=== PATIENT | male | born 1945 | race Caucasian/White ===

== ENCOUNTER 2016-05-23 12:42 | Emergency (ER) | payer OTHER ==
[~2016-05-23] VITALS: Ht 177.8 cm; Wt 89.3 kg
[~2016-05-23 12:42] MED LIST: DOXY100T17 PO; IBUP-1050 PO; SIMV20TA2 PO
[2016-05-23 12:53] VITALS: Ht 177.8 cm; Wt 89.3 kg
[2016-05-23 14:06] LABS: BASO % 0.2 %; BASO ABS # 0.03 K/uL (0-0.2); COMPLETE YES; EOS % 0.3 %; HEMATOCRIT 45.7 % (42-52); IG% 0.3 %; LYMPH % 5.3 %; LYMPH ABS # 0.69 K/uL (1.2-3.4); MEAN CELL VOLUME 89.8 fL (80-100); MEAN CORPUSCULAR HEMOGLOBIN 32.4 pg (25-34); MEAN CORPUSCULAR HGB CONC 36.1 g/dl (32-36); MEAN PLATELET VOLUME 9.5 fL (7.4-10.4); MONO % 5.3 %; NEUT % 88.6 %; PLATELET COUNT 236 K/uL (130-400); RED BLOOD COUNT 5.09 M/uL (4.7-6.1)
[2016-05-23 14:21] LABS: BLOOD UREA NITROGEN 12 mg/dl (7-18); BUN/CREATININE RATIO 12.1 (10-20); C-REACTIVE PROTEIN < 0.29 mg/dl (0-0.29); CALCIUM 9.1 mg/dl (8.5-10.1); CARBON DIOXIDE 24 mmol/L (21-32); CHLORIDE 107 mmol/L (98-107); CREATININE 0.98 mg/dl (0.60-1.40); GLUCOSE 112 mg/dl (70-99); SODIUM 141 mmol/L (136-145)
[2016-05-23 14:30] VITALS: TEMP 36.8
--- NOTE | 2016-05-23 14:59 | EMERGENCY ROOM VISIT NOTE ---
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 I was involved in the patient's care and did evaluate the patient myself. I was involved in the care throughout the ER stay. The patient presents with rigors. He is not febrile currently but does have a slight white blood cell count elevation. His symptoms have completely resolved and he feels back to baseline. He does have a urine sample and chest x-ray pending, blood cultures are pending. We await the results of the chest x-ray and urine sample.
[2016-05-23 15:15] LABS: URINE APPEARANCE CLEAR (CLEAR); URINE BILIRUBIN NEG (NEG); URINE COLOR DK YELLOW; URINE EPITHELIAL CELL AUTO 0-5 /lpf (0-5); URINE NITRITE NEG (NEG); URINE PH 5.5 (4.5-7.5); URINE SPECIFIC GRAVITY 1.015 (1.000-1.030); UROBILINOGEN NEG (NEG)
[2016-05-23 15:30] LABS: MANUAL MICROSCOPIC REQUIRED? NO; REVIEW REQ? NO
--- NOTE | 2016-05-23 16:02 | DIAGNOSTIC IMAGING REPORT ---
CHEST 2 VIEWS ROUTINE CLINICAL HISTORY: Chills. Shaking. Cough. COMPARISON STUDY: Chest radiograph January 24, 2016. FINDINGS: Lung volumes are normal. Lateral view demonstrates mild opacity projecting over the posterior elements of the lower thoracic spine. This is not confirmed on the frontal projection. Otherwise, the lungs are clear. Cardiac size is normal. Mediastinal contours are normal. There is no evidence of pulmonary edema. IMPRESSION: Small nodular opacity projecting over the posterior elements of the lower thoracic spine only on lateral projection. An area of pneumonia or a pulmonary nodule could have this appearance. PA and lateral chest radiographs in one month to ensure resolution are recommended. Electronically signed by: Mathieu Alfred M.D. 05/23/2016 4:01 PM Dictated Date/Time: 05/23/2016 3:59 PM
[2016-05-23] MEDS ORDERED: AZITTAB PO (16:11)
[2016-05-23 16:34] VITALS: BP 125/71; PULSE 102; O2SAT 94
--- NOTE | 2016-05-24 18:16 | EMERGENCY ROOM VISIT NOTE ---
History First contact with patient: 13:24 Chief Complaint: OTHER COMPLAINT Stated Complaint: SHAKING History of Present Illness The patient is a 71 year old white male who presents to the Emergency Room with complaints of sudden onset of vigorous shaking that occurred while at [employer] today. He was brought to the ED by [facility] and states that the shaking stopped just prior to arrival. He has had one similar episode last year when he was diagnosed with Lyme disease infection. Patient denies feeling ill. He denies any fevers, chills, sweats, nausea, vomiting, diarrhea, shortness of breath, sore throat, or ear pain. No known ill contacts. He states he remembers the entire shaking episode. There was no loss of consciousness. He denies any headache. No change in vision, speech, or hearing. His accompanies him today. He states he currently feels well. Review of Systems REVIEW OF SYSTEM: HEENT: No dizziness, visual problems, hearing loss, or tinnitus. There is no difficulty swallowing and no oral lesions are present. LYMPH: No adenopathy. PULMONARY: No cough, shortness of breath, sputum production or hemoptysis. CARDIOVASCULAR: No chest pain, palpitations, shortness of breath or peripheral edema. GASTROINTESTINAL: No diarrhea, constipation, nausea, vomiting, or abdominal pain. GENITOURINARY: No dysuria, frequency, urgency or nocturia. NEUROLOGIC: No weakness, muscle tenderness, epilepsy or history of neurological problems. MUSCULOSKELETAL: No history of joint tenderness/swelling. Positive history of arthritis and arthralgias. SKIN: No rashes or lesions. PSYCHIATRIC: No history of depression or mental illness. ENDOCRINE: No history of diabetes, thyroid disorders, or abnormal hair growth. Past Medical/Surgical History Medical Problems: (1) Hyperlipemia Family History Noncontributory. Social History Smoking Status: Former Smoker Smokeless Tobacco Use: No Alcohol Use: occasionally Drug Use: none Marital Status: Housing Status: lives with family Occupation Status: retired Current/Historical Medications Scheduled Azithromycin (Zithromax Z-Kodak), 0 PO UD Simvastatin (Zocor), 20 MG PO QPM Allergies Coded Allergies: No Known Allergies (Unverified , 01/24/16) Physical Exam Vital Signs Date Time Temp Pulse Resp B/P Pulse Ox O2 Delivery O2 Flow Rate FiO2 05/23/16 16:34 102 22 125/71 94 05/23/16 14:30 36.8 90 16 126/75 92 Room Air 05/23/16 12:55 97 05/23/16 12:53 36.9 100 18 136/102 95 Room Air Pain Rating (0-10): 0 Physical Exam Gen.: Well-developed, well-nourished, elderly white male, in no acute distress. Laying on a bed. Alert and oriented. Skin:Warm and dry with good turgor. No rashes or lesions. No ecchymosis or erythema. The patient is not diaphoretic. No abrasions. HEENT: Normocephalic atraumatic. Eyes PERRLA, EOMI. No conjunctiva or scleral injection. Ears TMs intact bilaterally with good light reflexes. No erythema or bulging. No hemotympanum. Canals are patent. Nares patent bilaterally without turbinate enlargement. No significant drainage. No epistaxis. Oropharynx without erythema or exudate. Uvula midline, oral mucosa moist. No lesions present. Heart: Heart RRR. No MGR. Peripheral pulses are 2+. Lungs: Lungs are clear to auscultation. No crackles rhonchi or wheezing. Good air movement. The patient is able to take a deep breath. Abdomen: Abdomen was inspected, auscultated, and palpated. Bowel sounds present x 4. Soft, nontender to palpation. No hepato- splenomegaly. No masses noted. No rebound. No CVA tenderness. Musculoskeletal: Gross motor function of the upper and lower extremities is intact and unremarkable. Neurologic: Gross sensation is intact across the upper and lower extremities by soft touch. Medical Decision & Procedures ER Provider Diagnostic Interpretation: Chest x-ray obtained today shows a small nodular opacity over the posterior elements of the lower thoracic spine. Area of pneumonia or pulmonary nodule cannot be excluded. Chest radiographs in one month were recommended. EKG obtained today shows a normal sinus rhythm with incomplete right bundle- branch block. No significant change since December 2015. Rate of 99. This was reviewed with Dr. Avalos. Laboratory Results 05/23/16 13:55 Red Blood Count 5.09, Mean Corpuscular Volume 89.8, Mean Corpuscular Hemoglobin 32.4, Mean Corpuscular Hemoglobin Concent 36.1, Mean Platelet Volume 9.5, Neutrophils (%) (Auto) 88.6, Lymphocytes (%) (Auto) 5.3, Monocytes (%) (Auto) 5.3, Eosinophils (%) (Auto) 0.3, Basophils (%) (Auto) 0.2, Neutrophils # (Auto) 11.41, Lymphocytes # (Auto) 0.69, Monocytes # (Auto) 0.69, Eosinophils # (Auto) 0.04, Basophils # (Auto) 0.03 05/23/16 13:55 Test 05/23/16 13:55 05/23/16 15:00 White Blood Count 12.90 K/uL (4.8-10.8) Red Blood Count 5.09 M/uL (4.7-6.1) Hemoglobin 16.5 g/dL (14.0-18.0) Hematocrit 45.7 % (42-52) Mean Corpuscular Volume 89.8 fL (80-100) Mean Corpuscular Hemoglobin 32.4 pg (25-34) Mean Corpuscular Hemoglobin Concent 36.1 g/dl (32-36) Platelet Count 236 K/uL (130-400) Mean Platelet Volume 9.5 fL (7.4-10.4) Neutrophils (%) (Auto) 88.6 % Lymphocytes (%) (Auto) 5.3 % Monocytes (%) (Auto) 5.3 % Eosinophils (%) (Auto) 0.3 % Basophils (%) (Auto) 0.2 % Neutrophils # (Auto) 11.41 K/uL (1.4-6.5) Lymphocytes # (Auto) 0.69 K/uL (1.2-3.4) Monocytes # (Auto) 0.69 K/uL (0.11-0.59) Eosinophils # (Auto) 0.04 K/uL (0-0.5) Basophils # (Auto) 0.03 K/uL (0-0.2) RDW Standard Deviation 43.1 fL (36.4-46.3) RDW Coefficient of Variation 13.1 % (11.5-14.5) Immature Granulocyte % (Auto) 0.3 % Immature Granulocyte # (Auto) 0.04 K/uL (0.00-0.02) Erythrocyte Sedimentation Rate 18 mm/hr (0-14) Anion Gap 10.0 mmol/L (3-11) Est Creatinine Clear Calc Drug Dose 77.8 ml/min Estimated GFR () 89.5 Estimated GFR (Non- 77.3 BUN/Creatinine Ratio 12.1 (10-20) Calcium Level 9.1 mg/dl (8.5-10.1) C-Reactive Protein < 0.29 mg/dl (0-0.29) Urine Color DK YELLOW Urine Appearance CLEAR (CLEAR) Urine pH 5.5 (4.5-7.5) Urine Specific [place] 1.015 (1.000-1.030) Urine Protein NEG (NEG) Urine Glucose (UA) NEG (NEG) Urine Ketones NEG (NEG) Urine Occult Blood NEG (NEG) Urine Nitrite NEG (NEG) Urine Bilirubin NEG (NEG) Urine Urobilinogen NEG (NEG) Urine Leukocyte Esterase TRACE (NEG) Urine WBC (Auto) 1-5 /hpf (0-5) Urine RBC (Auto) 0-4 /hpf (0-4) Urine Hyaline Casts (Auto) 1-5 /lpf (0-5) Urine Epithelial Cells (Auto) 0-5 /lpf (0-5) Urine Bacteria (Auto) NEG (NEG) CBC, chem panel, and UA were obtained. C-reactive protein and sedimentation rate were also obtained. WBCs elevated at 12.9. Sedimentation rate elevated at 18. Chem panel and UA were unremarkable. Blood cultures were obtained today and are pending. ED Course Patient has family were educated regarding today's findings. Conservative care measures were discussed. IV was established. Labs were obtained. Chest x-ray and EKG were also obtained. Given the finding on his chest x-ray, his Reiger's , and his elevated white count, we will treat this as pneumonia. Prescription was given for Zithromax Z-Kodak to be taken daily. Follow-up with his PCP this week for reexamination. Obtain the chest x-ray in about a month to confirm resolution. Tylenol and Motrin every 6 hours as needed for fever or discomfort. Return to the ED for any acute changes or worsening chills. He will be called with blood culture results if they're positive. Patient was seen in conjunction with Dr. Avalos, who also evaluated the patient and concurred with today's diagnosis and treatment plan. Medical Decision Possibility of UTI, pneumonia, sepsis, seizure, and recurrence of Lyme disease were considered. Impression Primary Impression: Pneumonia of lower lobe due to infectious organism Additional Impression: Rigors Departure Information Dispostion Home / Self-Care Condition GOOD Prescriptions Azithromycin (ZITHROMAX Z-KODAK) 250 Mg Tab 0 PO UD, #1 PKT 2 TABS DAY 1, THEN 1 TAB DAILY FOR 4 DAYS Prov: Sudhakar Pedroza,P.A. 05/23/16 Forms WORK / SCHOOL INSTRUCTIONS, HOME CARE DOCUMENTATION FORM, MOTRIN USE, TYLENOL USE, IMPORTANT VISIT INFORMATION Patient Instructions My [facility] Additional Instructions Follow-up with your PCP this week for reexamination Obtain a chest x-ray in about a month to confirm resolution Zithromax Z-Kodak daily 5 days Tylenol and Motrin every 6 hours as needed for fever/discomfort Return to the ED for any acute changes or worsening chills You will be called with the blood culture results if they are positive Problem Qualifiers
== END 2016-05-23 16:36 | disposition home or self-care (01) ==
LOC: EDSEX 12:42 → C.EDA 12:42 → EDBD 12:42 → C.EDA 16:36
DX: J18.1 Lobar pneumonia, unspecified organism (principal); R68.89 Other general symptoms and signs; E78.5 Hyperlipidemia, unspecified; Z87.891 Personal history of nicotine dependence

== ENCOUNTER → 2016-06-03 | Outpatient (CLI) | payer OTHER ==
[~2016-06-03] MED LIST changes: +AZITTAB PO; -DOXY100T17 PO; -IBUP-1050 PO
[2016-06-03 12:28] LABS: BASO % 0.5 %; BASO ABS # 0.04 K/uL (0-0.2); COMPLETE YES; EOS % 2.2 %; HEMATOCRIT 45.5 % (42-52); IG% 0.1 %; LYMPH % 28.8 %; LYMPH ABS # 2.49 K/uL (1.2-3.4); MEAN CELL VOLUME 89.4 fL (80-100); MEAN CORPUSCULAR HEMOGLOBIN 31.4 pg (25-34); MEAN CORPUSCULAR HGB CONC 35.2 g/dl (32-36); MEAN PLATELET VOLUME 9.7 fL (7.4-10.4); MONO % 8.4 %; PLATELET COUNT 323 K/uL (130-400); RED BLOOD COUNT 5.09 M/uL (4.7-6.1); WHITE BLOOD COUNT 8.65 K/uL (4.8-10.8)
== END | disposition home or self-care (01) ==
LOC: C.LABPBG 09:57
PROVIDERS: ATTEND Neuromusculoskeletal Medicine & OMM
DX: Z86.2 Personal history of diseases of the blood and blood-forming organs and certain disorders involving the immune mechanism (principal)

== ENCOUNTER → 2016-06-09 | Outpatient (CLI) | payer OTHER ==
[~2016-06-09] MED LIST changes: -AZITTAB PO
--- NOTE | 2016-06-09 11:19 | DIAGNOSTIC IMAGING REPORT ---
CT LUNG SCREENING, LOW DOSE WITH COMPUTER-AIDED DETECTION (CAD) CLINICAL HISTORY: Lung cancer screening. Smoking history. COMPARISON STUDY: Chest x-ray dated 05/23/2016. CT DOSE: 81.68 mGycm TECHNIQUE: Low-dose helical CT was acquired without intravenous contrast from lung apices to bases and reconstructed at 2.5 mm every 2 mm. CAD was utilized for this study. FINDINGS: Thyroid: Imaged portions of the thyroid gland are normal in appearance. Thoracic aorta: There is mild atherosclerotic calcification of the thoracic aorta, which is normal in caliber and demonstrates standard 3-vessel arch anatomy. Heart: The heart is normal in size and configuration, without pericardial effusion. The coronary arteries are densely calcified. The pulmonary trunk is normal in caliber. Lungs and pleural spaces: Emphysematous change is noted. There is no airspace consolidation or pleural effusion. Fat-containing Bochdalek hernias are present at both lung bases. The trachea and central airways are clear. There is a 3 mm pulmonary nodule at the left lung base seen on image #252. A calcified granuloma is seen in the medial left lower lobe on image #127. Mediastinum: There are scattered benign-appearing mediastinal lymph nodes. Ny: Not well assessed without IV contrast. Axilla: Clear. Upper abdomen: A small hiatal hernia is noted. Partially visualized upper abdominal viscera is otherwise grossly normal. Skeletal structures: There are no lytic or blastic osseous lesions. Advanced arthritic change is present in the shoulders, right greater than left. IMPRESSION: 1. Emphysema. 2. No airspace consolidation or pleural effusion is identified. 3. There is a 3 mm indeterminant but low suspicion left lower lobe pulmonary nodule. See below. Nodule 1 Category: 2 Nodule 1 Status: Baseline Nodule 1 Description: Solid Nodule 1 Lesion ID: 1 Nodule 1 Slice Number: 43 Nodule 1 Volume (mm3): 17 Nodule 1 Major [place] mm: 4.4 Nodule 1 Minor [place] mm: 3.1 CAD FINDINGS: Overall Lung RADS Category: 2 Lung RADS Management Recommendation: Lung-RADS 2: Continue annual screening in 12 months. Lung RADS Follow Up Date: 2017-06-09 Lung RADS Nodule ID: 1 Electronically signed by: Camron Pena M.D. 06/09/2016 11:18 AM Dictated Date/Time: 06/09/2016 10:24 AM
== END | disposition home or self-care (01) ==
LOC: C.CTS 09:59
PROVIDERS: ATTEND Neuromusculoskeletal Medicine & OMM
DX: J18.1 Lobar pneumonia, unspecified organism (principal); Z87.891 Personal history of nicotine dependence

== ENCOUNTER → 2016-08-26 | Outpatient (CLI) | payer OTHER ==
[2016-08-26 15:41] LABS: ALT/SGPT 33 U/L (12-78); BLOOD UREA NITROGEN 14 mg/dl (7-18); BUN/CREATININE RATIO 12.8 (10-20); CARBON DIOXIDE 28 mmol/L (21-32); CHLORIDE 108 mmol/L (98-107); CHOLESTEROL 149 mg/dl (0-200); GLUCOSE 97 mg/dl (70-99); POTASSIUM 4.3 mmol/L (3.5-5.1); SODIUM 143 mmol/L (136-145); TRIGLYCERIDES 196 mg/dl (0-150); VERY LOW DENSITY LIPOPROT CALC 39 mg/dl
[2016-08-26 15:42] LABS: CALCIUM 9.1 mg/dl (8.5-10.1)
[2016-08-26 15:52] LABS: ALKALINE PHOSPHATASE 40 U/L (45-117); AST/SGOT 25 U/L (15-37); CHOLESTEROL/HDL RATIO 4.8; HDL CHOLESTEROL 31 mg/dl; LDL CHOLESTEROL CALCULATED 79 mg/dl
== END | disposition home or self-care (01) ==
LOC: C.LABPBG 07:38
PROVIDERS: ATTEND Neuromusculoskeletal Medicine & OMM
DX: Z00.00 Encounter for general adult medical examination without abnormal findings (principal); Z11.59 Encounter for screening for other viral diseases; E78.5 Hyperlipidemia, unspecified

== ENCOUNTER → 2016-12-23 | Outpatient (CLI) | payer OTHER | END | disposition home or self-care (01) | LOC: C.LABPBG 10:08 | PROVIDERS: ATTEND Urology | DX: N40.1 Benign prostatic hyperplasia with lower urinary tract symptoms (principal); R97.20 Elevated prostate specific antigen [PSA] ==

== ENCOUNTER → 2017-03-01 | Outpatient (CLI) | payer OTHER ==
[2017-03-01 13:34] LABS: BLOOD UREA NITROGEN 11 mg/dl (7-18); BUN/CREATININE RATIO 10.4 (10-20); CALCIUM 8.8 mg/dl (8.5-10.1); CARBON DIOXIDE 28 mmol/L (21-32); CHLORIDE 106 mmol/L (98-107); CREATININE 1.04 mg/dl (0.60-1.40); GLUCOSE 102 mg/dl (70-99); POTASSIUM 4.4 mmol/L (3.5-5.1); SODIUM 139 mmol/L (136-145)
[2017-03-01 13:37] LABS: ALB/GLOB RATIO 0.9 (0.9-2); ALKALINE PHOSPHATASE 60 U/L (45-117); ALT/SGPT 27 U/L (12-78); AST/SGOT 23 U/L (15-37); CHOLESTEROL 127 mg/dl (0-200); CHOLESTEROL/HDL RATIO 3.6; HDL CHOLESTEROL 35 mg/dl; LDL CHOLESTEROL CALCULATED 62 mg/dl; TRIGLYCERIDES 151 mg/dl (0-150); VERY LOW DENSITY LIPOPROT CALC 30 mg/dl
== END | disposition home or self-care (01) ==
LOC: C.LABPBG 08:33
PROVIDERS: ATTEND Neuromusculoskeletal Medicine & OMM
DX: E78.5 Hyperlipidemia, unspecified (principal)

== ENCOUNTER → 2017-07-04 | Outpatient (CLI) | payer OTHER | END | disposition home or self-care (01) | LOC: C.LABPBG 10:18 | PROVIDERS: ATTEND Urology | DX: N40.1 Benign prostatic hyperplasia with lower urinary tract symptoms (principal) ==

== ENCOUNTER 2018-09-24 19:09 | Inpatient (IN) ==
[2018-09-24] MEDS ORDERED: ACETAMINOPHEN 500 MG TAB PO STA (19:18)
[2018-09-24] MEDS ORDERED: SODIUM CHLORIDE 0.9% 1000ML 2,000 ML IV SCH (19:30)
[2018-09-24 19:43] LABS: Basophils # (auto) 0.03 K/uL (0-0.2); Basophils % (auto) 0.2 %; Eosinophils # (auto) 0.07 K/uL (0-0.5); Eosinophils % (auto) 0.5 %; Hematocrit (blood only) 43.4 % (42-52); Hemoglobin 15.1 g/dL (14.0-18.0); Immature Granulocytes # (auto) 0.02 K/uL (0.00-0.02); Immature Granulocytes % (auto) 0.2 %; Lymphocytes # (auto) 0.42 K/uL (1.2-3.4); Lymphocytes % (auto) 3.2 %; Mean Corpuscular Hgb Conc 34.8 g/dL (32-36); Mean Corpuscular Volume 91.6 fL (80-100); Monocytes # (auto) 0.54 K/uL (0.11-0.59); Monocytes % (auto) 4.2 %; Neutrophils # (auto) 11.87 K/uL (1.4-6.5); Neutrophils % (auto) 91.7 %; Platelet Count 203 K/uL (130-400); RDW Coefficient of Variation 13.7 % (11.5-14.5); RDW Standard Deviation 45.6 fL (36.4-46.3); Red Blood Count 4.74 M/uL (4.7-6.1); White Blood Count 12.95 K/uL (4.8-10.8)
[2018-09-24 20:00] LABS: Alanine Aminotransferase 30 U/L (12-78); Albumin Level 3.2 gm/dl (3.4-5.0); Aspartate Aminotransferase 26 U/L (15-37); Blood Urea Nitrogen 18 mg/dl (7-18); Carbon Dioxide 26 mmol/L (21-32); Chloride 107 mmol/L (98-107); Creatinine Clr Calc Pharmacy 69.7 ml/min; Est GFR (African American) 83.1; Est GFR (Non-African American) 71.7; Glucose 129 mg/dl (70-99); Potassium 3.9 mmol/L (3.5-5.1); Sodium 140 mmol/L (136-145)
[2018-09-24 20:05] LABS: Albumin Globulin Ratio 0.9 (0.9-2); Alkaline Phosphatase 47 U/L (45-117); Bilirubin,Total 0.5 mg/dl (0.2-1); Globulin 3.4 gm/dl (2.5-4.0); Total Protein 6.6 gm/dl (6.4-8.2); Troponin I < 0.015 ng/ml (0-0.045)
[2018-09-24 20:17] LABS: Appearance Urine Clear (Clear); Bilirubin Urine Negative (Negative); Blood Urine Negative (Negative); Color Urine Yellow; Glucose Urine UA Negative (Negative); Ketones Urine Negative (Negative); Leukocyte Esterase Urine Negative (Negative); Nitrite Urine Negative (Negative); Protein Urine Negative (Negative); Specific Gravity Urine 1.017 (1.000-1.030); Urobilinogen Urine Negative (Negative); pH Urine 5.5 (4.5-7.5)
[2018-09-24] MEDS ORDERED: cefTRIAXone SODIUM 2,000 MG in DEXTROSE 5% 50 ML IV STA (20:24)
--- NOTE | 2018-09-24 20:27 | XRay Report ---
XR chest 2V routine CLINICAL HISTORY: sob, fever COMPARISON STUDY: 01/24/2016 FINDINGS: The cardiac and mediastinal contours are normal. There is no evidence of focal pulmonary co nsolidation. There is no evidence of failure. No pleural effusions are visualized.[ IMPRESSION: No active disease in the chest. Electronically signed by: Fredrick Muhammad M.D. 09/24/2018 8:26 PM
--- NOTE | 2018-09-24 21:09 | CT Scan Report ---
CT chest wo con CLINICAL HISTORY: Fever, possible pneumonia. COMPARISON STUDY: Chest x-ray dated 09/24/2018, CT scan dated 09/15/2018 CT DOSE: 418.12 mGy.cm TECHNIQUE: CT of the thorax was performed from the thoracic inlet to the lung bases. Images are revi ewed in the axial, sagittal, and coronal planes. IV contrast was not administered for this examinatio n. A dose lowering technique was utilized adhering to the principles of ALARA. FINDINGS: Thyroid: Imaged portions of the thyroid gland are normal in appearance. Thoracic aorta: The thoracic aorta is normal in course and caliber, noting standard 3 vessel arch patricia eve. Heart: There are mild coronary artery calcifications. The heart is normal in size. There is no perica rdial effusion. Lungs and pleural spaces: There are no pleural effusions. There is no acute parenchymal consolidation . A 6 mm solid left lower lobe pulmonary nodule is visualized on image #[id number]. This is slowly growi ng, as this nodule measured 4 mm and 2017. There is a stable solid subpleural 4 mm left upper lobe pu lmonary nodule. There are a few scattered micronodules. Mediastinum: There is a borderline enlarged 1 cm precarinal lymph node. Ny: There is no evidence of pathologic hilar adenopathy given the limitations of a noncontrast stud y Axilla: There is no evidence of pathologic axillary lymphadenopathy Upper abdomen: Partially visualized upper abdominal viscera is within normal limits. Skeletal structures: There are no lytic or blastic osseous lesions. IMPRESSION: 1. No evidence of acute parenchymal consolidation. 2. Indeterminate slowly growing solid 6 mm left lower lobe pulmonary nodule. This nodule measured 4 m m in May 2016. Nonemergent pulmonary consultation is recommended. Electronically signed by: Fredrick Muhammad M.D. 09/24/2018 9:08 PM
--- NOTE | 2018-09-24 22:01 | Emergency Department Note ---
Entered by Camron Price acting as a scribe for Alfred Christopher M.D. History of Present Illness General Chief complaint: Illness Stated complaint: SOB, ILLNESS, COUGH, FEVER Source: patient History of Present Illness Provider complaint: SOB Onset (ago): minute(s) Location: chest Associated symptoms: + denies other symptoms (abd pain) and + shortness of breath; no loss of appetite and no nausea/vomiting Treatments prior to arrival: other (IV fluid) The patient is a 73 year old male with a history of asthma, hyperlipidemia, and arthritis who presents to the Emergency Room with complaints of shortness of breath that began slightly prior to arrival. The patient also complains of feeling shaky. The patient notes that he had a similar episode to this one approximately 3 weeks ago. He states that his had PNA 3 weeks ago. The patient denies abdominal pain, nausea/vomiting, and problems eating/drinking. The patient was seen 1 week ago. He states that he has a spot of left lung that was unchanged at that time and adds that he had a new spot on his right lung. Home Medications Home Medications Medication Instructions Recorded Confirmed Type multivitamin tablet 1 tab PO DAILY 09/12/18 09/24/18 History simvastatin 20 mg tablet 20 mg PO QPM #90 tab 09/12/18 09/24/18 Rx Allergies Allergy/AdvReac Type Severity Reaction Status Date / Time No Known Allergies Allergy Verified 09/24/18 20:12 Past Med/Surg History Medical History Pulmonary nodule less than 6 cm determined by computed tomography of lung (Chronic) Elevated PSA (Chronic) Benign prostatic hyperplasia with urinary obstruction (Chronic) Asthma (Chronic) Arthritis (Chronic) Lung consolidation (Resolved) Need for hepatitis C screening test completed- September 2016 Surgical History History of colonoscopy Fiberoptic History of tonsillectomy Family History Father Leukemia Sister Breast cancer 73 Mother No known health problems Social History Visual Impairment: No Limitations marital status: Current Living Situation: Spouse current occupational status: retired current occupation: Teacher Feels Safe at Home: Yes Smoking Status: Former smoker Tobacco Type: cigarettes Cigarettes Per Day: 1 ppd x 40yrs Hx Alcohol Use: Yes Alcohol type: beer Alcohol Intake Frequency Comment: 2 beers per day Hx Substance Use: No Review of Systems See HPI for pertinent positives & negatives. and A total of 10 systems reviewed and were otherwise negative Physical Exam Vital Signs Vital Signs - 24 hr 09/24/18 19:14 09/24/18 21:00 09/24/18 21:02 Temperature 38.9 C H 38.1 C H Temperature Source Oral Oral Sepsis Recent Fever Within 48 Hours Yes Sepsis New/Unexplained Change in Mental Status No Sepsis Action Taken by Nursing No Action Required Pulse Rate 118 H Pulse Rate [Apical] 99 H Respiratory Rate 18 18 Blood Pressure 136/82 Blood Pressure [Right Arm] 116/63 Blood Pressure Mean 100 Blood Pressure Mean [Right Arm] 80 Pulse Oximetry 93 94 Oxygen Delivery Method Room Air Room Air 09/24/18 21:52 Temperature Temperature Source Sepsis Recent Fever Within 48 Hours Sepsis New/Unexplained Change in Mental Status Sepsis Action Taken by Nursing Pulse Rate Pulse Rate [Apical] 90 Respiratory Rate 18 Blood Pressure Blood Pressure [Right Arm] 109/60 Blood Pressure Mean Blood Pressure Mean [Right Arm] 76 Pulse Oximetry 93 Oxygen Delivery Method Room Air GENERAL: Awake, alert, well-appearing, in no distress HENT: Normocephalic, atraumatic. EYES: Normal conjunctiva. Sclera non-icteric. NECK: Supple. No nuchal rigidity. RESPIRATORY: Clear to auscultation. No wheezes. Normal respiratory effort. CARDIAC: Tachycardic. Normal rhythm. Extremities warm and well perfused. GI: Soft, non-distended. No tenderness to palpation. No rebound or guarding. No masses. RECTAL: Deferred. MUSCULOSKELETAL: Atraumatic. Chest examination reveals no tenderness. There is no CVA tenderness to palpation. LOWER EXTREMITIES: Calves are equal size bilaterally and non-tender. No edema NEURO: Normal sensorium. No sensory or motor deficits noted. No facial droop or slurred speech. SKIN: Warm and dry. No rash or jaundice noted. Course 1909: The patient was evaluated in room C06. A complete history and physical e xam was performed. 2152: [facility] He will evalu ate the patient or further management. Consultations Consultation #1: [id number]: I discussed the patient case with Mary ruffin. He will evaluate the patient or further management. Time: 21:53 Administered Medications Discontinued Medications Acetaminophen (Tylenol) 1,000 mg PO NOW STA Stop: 09/24/18 19:19 Last Admin: 09/24/18 19:33 Dose: 1,000 mg Documented by: [id number] Sodium Chloride (Nss 1000ml) 2,000 mls @ 999 mls/hr IV .Q2H1M PHILLIP Stop: 09/24/18 21:30 Last Infusion: 09/24/18 21:53 Dose: 0 mls/hr Documented by: [id number] Admin: 09/24/18 19:33 Dose: 999 mls/hr Documented by: [id number] Ceftriaxone Sodium 2,000 mg/ (Dextrose) 70 mls @ 100 mls/hr IV NOW STA Stop: 09/24/18 21:05 Last Infusion: 09/24/18 21:53 Dose: 0 mls/hr Documented by: [id number] Admin: 09/24/18 21:01 Dose: 100 mls/hr Documented by: [id number] Medical Decision Making Differential Diagnosis Differential diagnosis: Etiologies such as viral syndrome, otitis, pharyngitis, pneumonia, influenza, meningitis, urinary tract infection, sepsis, bacteremia, as well as others were entertained. Medical Records Attestation: I reviewed the patient's medical records. Home Medications Current Medication List: was personally reviewed by me Laboratory Data Attestation: I reviewed the patient's lab results. Result diagrams: 09/24/18 19:14 09/24/18 19:14 Lab Results 09/24/18 09/24/18 09/24/18 Range/Units 19:14 19:14 19:14 WBC 12.95 H (4.8-10.8) K/uL RBC 4.74 (4.7-6.1) M/uL Hgb 15.1 (14.0-18.0) g/dL Hct 43.4 (42-52) % MCV 91.6 (80-100) fL MCH 31.9 (25-34) pg MCHC 34.8 (32-36) g/dL RDW Std Deviation 45.6 (36.4-46.3) fL RDW Coeff of Vikas 13.7 (11.5-14.5) % Plt Count 203 (130-400) K/uL MPV 10.0 (7.4-10.4) fL Immature Gran % (Auto) 0.2 % Neut % (Auto) 91.7 % Lymph % (Auto) 3.2 % [place] % (Auto) 4.2 % Eos % (Auto) 0.5 % Baso % (Auto) 0.2 % Immature Gran # (Auto) 0.02 (0.00-0.02) K/uL Neut # (Auto) 11.87 H (1.4-6.5) K/uL Lymph # (Auto) 0.42 L (1.2-3.4) K/uL [place] # (Auto) 0.54 (0.11-0.59) K/uL Eos # (Auto) 0.07 (0-0.5) K/uL Baso # (Auto) 0.03 (0-0.2) K/uL Sodium 140 (136-145) mmol/L Potassium 3.9 (3.5-5.1) mmol/L Chloride 107 (98-107) mmol/L Carbon Dioxide 26 (21-32) mmol/L Anion Gap 8.0 (3-11) BUN 18 (7-18) mg/dl Creatinine 1.03 (0.6-1.4) mg/dl Est Cr Clr Drug Dosing 69.7 ml/min Est GFR ( Amer) 83.1 Est GFR (Non-Af Amer) 71.7 BUN/Creatinine Ratio 17.0 (10-20) Glucose 129 H (70-99) mg/dl Lactate 2.4 H* (0.4-2.0) mmol/L Calcium 8.0 L (8.5-10.1) mg/dl Total Bilirubin 0.5 (0.2-1) mg/dl AST 26 (15-37) U/L ALT 30 (12-78) U/L Alkaline Phosphatase 47 (45-117) U/L Troponin I < 0.015 (0-0.045) ng/ml Total Protein 6.6 (6.4-8.2) gm/dl Albumin 3.2 L (3.4-5.0) gm/dl Globulin 3.4 (2.5-4.0) gm/dl Albumin/Globulin Ratio 0.9 (0.9-2) Lipase 243 (73-393) U/L Procalcitonin (0-0.5) ng/ml Urine Color Urine Appearance (Clear) Urine pH (4.5-7.5) Ur Specific [place] (1.000-1.030) Urine Protein (Negative) Urine Glucose (UA) (Negative) Urine Ketones (Negative) Urine Blood (Negative) Urine Nitrite (Negative) Urine Bilirubin (Negative) Urine Urobilinogen (Negative) Ur Leukocyte Esterase (Negative) 09/24/18 09/24/18 Range/Units 19:14 19:44 WBC (4.8-10.8) K/uL RBC (4.7-6.1) M/uL Hgb (14.0-18.0) g/dL Hct (42-52) % MCV (80-100) fL MCH (25-34) pg MCHC (32-36) g/dL RDW Std Deviation (36.4-46.3) fL RDW Coeff of Vikas (11.5-14.5) % Plt Count (130-400) K/uL MPV (7.4-10.4) fL Immature Gran % (Auto) % Neut % (Auto) % Lymph % (Auto) % [place] % (Auto) % Eos % (Auto) % Baso % (Auto) % Immature Gran # (Auto) (0.00-0.02) K/uL Neut # (Auto) (1.4-6.5) K/uL Lymph # (Auto) (1.2-3.4) K/uL [place] # (Auto) (0.11-0.59) K/uL Eos # (Auto) (0-0.5) K/uL Baso # (Auto) (0-0.2) K/uL Sodium (136-145) mmol/L Potassium (3.5-5.1) mmol/L Chloride (98-107) mmol/L Carbon Dioxide (21-32) mmol/L Anion Gap (3-11) BUN (7-18) mg/dl Creatinine (0.6-1.4) mg/dl Est Cr Clr Drug Dosing ml/min Est GFR ( Amer) Est GFR (Non-Af Amer) BUN/Creatinine Ratio (10-20) Glucose (70-99) mg/dl Lactate (0.4-2.0) mmol/L Calcium (8.5-10.1) mg/dl Total Bilirubin (0.2-1) mg/dl AST (15-37) U/L ALT (12-78) U/L Alkaline Phosphatase (45-117) U/L Troponin I (0-0.045) ng/ml Total Protein (6.4-8.2) gm/dl Albumin (3.4-5.0) gm/dl Globulin (2.5-4.0) gm/dl Albumin/Globulin Ratio (0.9-2) Lipase (73-393) U/L Procalcitonin 0.47 (0-0.5) ng/ml Urine Color Yellow Urine Appearance Clear (Clear) Urine pH 5.5 (4.5-7.5) Ur Specific [place] 1.017 (1.000-1.030) Urine Protein Negative (Negative) Urine Glucose (UA) Negative (Negative) Urine Ketones Negative (Negative) Urine Blood Negative (Negative) Urine Nitrite Negative (Negative) Urine Bilirubin Negative (Negative) Urine Urobilinogen Negative (Negative) Ur Leukocyte Esterase Negative (Negative) Imaging Data Radiologist's Impression: Radiology results as stated below per my review and the radiologist's interpretation: XR chest 2V routine CLINICAL HISTORY: sob, fever COMPARISON STUDY: 01/24/2016 FINDINGS: The cardiac and mediastinal contours are normal. There is no evidence of focal pulmonary consolidation. There is no evidence of failure. No pleural effusions are visualized.[ IMPRESSION: No active disease in the chest. Electronically signed by: Fredrick Muhammad M.D. 09/24/2018 8:[address] chest wo con CLINICAL HISTORY: Fever, possible pneumonia. COMPARISON STUDY: Chest x-ray dated 09/24/2018, CT scan dated 09/15/2018 CT DOSE: 418.12 mGy.cm TECHNIQUE: CT of the thorax was performed from the thoracic inlet to the lung bases. Images are reviewed in the axial, sagittal, and coronal planes. IV contrast was not administered for this examination. A dose lowering technique was utilized adhering to the principles of ALARA. FINDINGS: Thyroid: Imaged portions of the thyroid gland are normal in appearance. Thoracic aorta: The thoracic aorta is normal in course and caliber, noting standard 3 vessel arch anatomy. Heart: There are mild coronary artery calcifications. The heart is normal in size. There is no pericardial effusion. Lungs and pleural spaces: There are no pleural effusions. There is no acute parenchymal consolidation. A 6 mm solid left lower lobe pulmonary nodule is visualized on image #[id number]. This is slowly growing, as this nodule measured 4 mm and 2017. There is a stable solid subpleural 4 mm left upper lobe pulmonary nodule. There are a few scattered micronodules. Mediastinum: There is a borderline enlarged 1 cm precarinal lymph node. [place]: There is no evidence of pathologic hilar adenopathy given the limitations of a noncontrast study Axilla: There is no evidence of pathologic axillary lymphadenopathy Upper abdomen: Partially visualized upper abdominal viscera is within normal limits. Skeletal structures: There are no lytic or blastic osseous lesions. IMPRESSION: 1. No evidence of acute parenchymal consolidation. 2. Indeterminate slowly growing solid 6 mm left lower lobe pulmonary nodule. This nodule measured 4 mm in May 2016. Nonemergent pulmonary consultation is recommended. Electronically signed by: Fredrick Muhammad M.D. 09/24/2018 9:08 PM ECG Data Attestation: I personally reviewed and interpreted this ECG as follows: Indication: SOB/dyspnea Rate (beats per minute): 112 Rhythm: sinus tachycardia Findings: + other (nonspecific lateral ST changes) and + RBBB (incomplete); no PVC, no ST depression and no ST elevation Blood Pressure Blood Pressure Findings: Normal blood pressure MDM Narrative 73-year-old gentleman with a history of hyperlipidemia and former smoker presenting today complaining of fever and shortness of breath. Describes what almost sounds like Reiger's and is febrile upon arrival. States was sick with pneumonia several weeks ago and he seemed a little bit ill improved and then over the last day or 2 significantly worsened again. Denies pain at this time. Denies GI symptomatologies. Endorses a bit of a cough and again some shortness of breath. Denies any travel. No medications prior to arrival other than some IV fluid for EMS. I did order Tylenol here for him given his febrile state. Appears to be in a sinus tachycardia with ectopy at this time. Lower suspicion this is ACS there is some questionable lateral ST changes. Troponin is negative however and has no active chest discomfort. Believe tachycardia is in response to likely sepsis. Concern given fever possible infectious source and possible pneumonia. Patient is also had some prostate issues and will investigate if there is a possible bacteremia or UTI. No significant symptoms reported here however. Benign abdomen. Does not appear meningitic at all. No other skin infection site noted. Again lactate blood cultures and basic laboratory studies are ordered. IV fluids were ordered. Lactic acid level is elevated at 2.4. No signs of kidney injury, hepatitis, or pancreatitis. Urinalysis is unimpressive. Two-view chest x-ray showed no acute process but concerned that this is an occult pneumonia based on prior CT. CT of the chest w ith completed to exclude this. I doubt this is acute PE. Procalcitonin elevated at 0.47. Did give a dose of 2 g of ceftriaxone for broad-spectrum coverage pending this result. CT scan does not show any occult pneumonia on today's image. Discussed findings with the patient's and my concern. No clear source but meeting SIRS criteria. Persistently febrile and tachycardic. Again does not appear acutely meningitic. Does have some mild prostate and urinary issues and could possibly be occult prostatitis. Given the SIRS criteria he is experiencing discussed with the hospitalist for possible observation. Impression & Plan Fever, SIRS (systemic inflammatory response syndrome), SOB (shortness of breath) Discharge Plan Visit Data Chief Complaint: Illness Stated Complaint: SOB, ILLNESS, COUGH, FEVER ED Provider: Alfred Christopher Discharge Problem: Fever, SIRS (systemic inflammatory response syndrome), SOB (shortness of breath) Forms Stand Alone Forms: [facility] Prescriptions Prescriptions: No Action multivitamin tablet 1 tab PO DAILY RF: 0 simvastatin 20 mg tablet 20 mg PO QPM Qty: 90 RF: 3 Discharge Problem: Fever Qualifiers: Fever type: unspecified Qualified Code(s): R50.9 - Fever, unspecified The scribe's documentation has been prepared under my direction and personally reviewed by me in its entirety. I confirm that the note above accurately reflects all work, treatment, procedures, and medical decision making performed by me.
--- NOTE | 2018-09-24 23:26 | History & Physical Report ---
Date of Service September 24, 2018 Assessment & Plan (1) Fever: Patient has had intermittent fevers with 3 episodes of illness, 1 of which was thought possibly to be pneumonia. Differential includes dental infection, prostatitis, endocarditis, Ehrlichiosis or anaplasmosis. Ordering CT of facial bones with and without contrast. Ordering complete echocardiogram. Ordering urinalysis, urine culture sensitivity. Ordering ehrlichiosis and anaplasmosis antibodies and peripheral smear. He was given ceftriaxone 2 g IV in the ED, and will continue [address] on doxycycline 100 mg p.o. twice daily. Present on Admission?: Yes (2) SIRS (systemic inflammatory response syndrome): See above Present on Admission?: Yes (3) SOB (shortness of breath): See above Present on Admission?: Yes (4) Pulmonary nodule less than 6 cm determined by computed tomography of lung: Pulmonary nodule on the left lower lobe is increased from 4 to 6 mm, for which she will need to follow-up with pulmonology or the lung clinic. Present on Admission?: Yes (5) Elevated PSA: Patient reports he is chronically elevated PSA, with most recent 7.320 on 07/03/2018. He is not on any maintenance medications. He does follow with Dr. Holden from urology. In the differential for his recurrent fevers is prostatitis. Follow urine culture and sensitivity. Present on Admission?: Yes (6) Benign prostatic hyperplasia with urinary obstruction: See above Present on Admission?: Yes (7) Asthma: Patient does not use inhalers on a routine basis, but is prone to infection. Present on Admission?: Yes (8) Arthritis: Patient continues to have low back and bilateral hip pain which extends to below his knees. He has undergone surgery by Dr. Jones in the recent past. Present on Admission?: Yes (9) Hyperlipemia: Continue simvastatin 20 mg in evening Present on Admission?: Yes History of Present Illness Chief Complaint: The patient presents to the emergency department with complaint of fever, shortness of breath and generalized myalgias. 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 He has had some general symptoms of fatigue and feeling shaky as well. He has had 2 similar episodes, with the last about 3 weeks prior to arrival, reports that he was diagnosed with pneumonia, and treated with antibiotics. He also reports that he has been diagnosed with and treated for Lyme in the past, and that his son has recently been diagnosed with Lyme Allergies Allergy/AdvReac Type Severity Reaction Status Date / Time No Known Allergies Allergy Verified 09/24/18 20:12 Home Medications Home Medications Medication Instructions Recorded Confirmed Type multivitamin tablet 1 tab PO DAILY 09/12/18 09/24/18 History simvastatin 20 mg tablet 20 mg PO QPM #90 tab 09/12/18 09/24/18 Rx Past Med/Surg History Medical History Pulmonary nodule less than 6 cm determined by computed tomography of lung (Chronic) Elevated PSA (Chronic) Benign prostatic hyperplasia with urinary obstruction (Chronic) Asthma (Chronic) Arthritis (Chronic) Lung consolidation (Resolved) Need for hepatitis C screening test completed- September 2016 Surgical History History of colonoscopy Fiberoptic History of tonsillectomy Family History Father Leukemia Sister Breast cancer 73 Mother No known health problems Social History Preferred Language: Welsh Communication Ability: Effective Visual Impairment: No Limitations Video Tape Transferrer Required: No Beliefs That Will Affect Care: None marital status: Current Living Situation: Spouse current occupational status: retired current occupation: Teacher Other Information That Helps Us Care for You: No Feels Safe at Home: Yes Safety Concerns: Feels Safe At This Time Smoking Status: Former smoker Tobacco Type: cigarettes Cigarettes Per Day: 1 ppd x 40yrs Do You Dip or Chew Tobacco: No Second Hand Exposure: No Tobacco Cessation Education Requested by Patient: No Hx Alcohol Use: Yes Alcohol type: beer Alcohol Intake Frequency Comment: 2 beers per day Hx Substance Use: No Review of Systems Review of Systems: The patient denies chest pain, palpitations, lower extremity swelling, sore throat, fevers, chills, sweats, nausea, vomiting, diarrhea , constipation, abdominal pain, pelvic pain, blood in urine or stool, dysuria, urinary frequency or urgency, lightheadedness, dizziness, headache, memory loss, loss of consciousness, rash, abnormal bruising or bleeding, imbalance, focal or generalized weakness, numbness or tingling in arms, neck pain, or night sweats. The review of systems is otherwise negative other than for that already noted above, and at least 10 systems have been reviewed. Physical Exam Physical Exam: The patient is awake, alert and oriented 3, well developed and well nourished, normocephalic and atraumatic, lying in bed and in no acute distress. HEENT--PERRL, EOMI, mucous membranes and oropharynx normal. Neck--supple. No JVD. No bruits. Thyroid normal, trachea midline, no adenopathy. Heart--normal S1 and S2. No murmurs, rubs or gallops. Lungs--clear bilaterally, no respiratory distress, no accessory muscle use. Abdomen--normal bowel sounds and soft. Nontender. Nondistended. Extremities--no cyanosis or clubbing. No edema. There are good distal pulses b/l. Dermatologic--normal skin turgor, normal color, no abnormal lymph nodes, no rash. Neurologic--cranial nerves II through XII grossly intact. Rheumatologic--normal range of motion. Psychiatric--normal affect. Results & Data Vital Signs (Past 12 Hours) Vital Signs Temp Pulse Pulse Resp BP BP Pulse Ox 09/24/18 21:52 90 18 109/60 93 09/24/18 21:02 100.6 F H 09/24/18 21:00 99 H 18 116/63 94 09/24/18 19:14 102.0 F H 118 H 18 136/82 93 Laboratory Results Laboratory Results WBC 12.95 K/uL (4.8-10.8) H 09/24/18 19:14 RBC 4.74 M/uL (4.7-6.1) 09/24/18 19:14 Hgb 15.1 g/dL (14.0-18.0) 09/24/18 19:14 Hct 43.4 % (42-52) 09/24/18 19:14 MCV 91.6 fL (80-100) 09/24/18 19:14 MCH 31.9 pg (25-34) 09/24/18 19:14 MCHC 34.8 g/dL (32-36) 09/24/18 19:14 RDW Std Deviation 45.6 fL (36.4-46.3) 09/24/18 19:14 RDW Coeff of Vikas 13.7 % (11.5-14.5) 09/24/18 19:14 Plt Count 203 K/uL (130-400) 09/24/18 19:14 MPV 10.0 fL (7.4-10.4) 09/24/18 19:14 Immature Gran % (Auto) 0.2 % 09/24/18 19:14 Neut % (Auto) 91.7 % 09/24/18 19:14 Lymph % (Auto) 3.2 % 09/24/18 19:14 [place] % (Auto) 4.2 % 09/24/18 19:14 Eos % (Auto) 0.5 % 09/24/18 19:14 Baso % (Auto) 0.2 % 09/24/18 19:14 Immature Gran # (Auto) 0.02 K/uL (0.00-0.02) 09/24/18 19:14 Neut # (Auto) 11.87 K/uL (1.4-6.5) H 09/24/18 19:14 Lymph # (Auto) 0.42 K/uL (1.2-3.4) L 09/24/18 19:14 [place] # (Auto) 0.54 K/uL (0.11-0.59) 09/24/18 19:14 Eos # (Auto) 0.07 K/uL (0-0.5) 09/24/18 19:14 Baso # (Auto) 0.03 K/uL (0-0.2) 09/24/18 19:14 Sodium 140 mmol/L (136-145) 09/24/18 19:14 Potassium 3.9 mmol/L (3.5-5.1) 09/24/18 19:14 Chloride 107 mmol/L (98-107) 09/24/18 19:14 Carbon Dioxide 26 mmol/L (21-32) 09/24/18 19:14 Anion Gap 8.0 (3-11) 09/24/18 19:14 BUN 18 mg/dl (7-18) 09/24/18 19:14 Creatinine 1.03 mg/dl (0.6-1.4) 09/24/18 19:14 Est Cr Clr Drug Dosing 69.7 ml/min 09/24/18 19:14 Est GFR ( Amer) 83.1 09/24/18 19:14 Est GFR (Non-Af Amer) 71.7 09/24/18 19:14 BUN/Creatinine Ratio 17.0 (10-20) 09/24/18 19:14 Glucose 129 mg/dl (70-99) H 09/24/18 19:14 Lactate 2.4 mmol/L (0.4-2.0) H* 09/24/18 19:14 Calcium 8.0 mg/dl (8.5-10.1) L 09/24/18 19:14 Total Bilirubin 0.5 mg/dl (0.2-1) 09/24/18 19:14 AST 26 U/L (15-37) 09/24/18 19:14 ALT 30 U/L (12-78) 09/24/18 19:14 Alkaline Phosphatase 47 U/L (45-117) 09/24/18 19:14 Troponin I < 0.015 ng/ml (0-0.045) 09/24/18 19:14 Total Protein 6.6 gm/dl (6.4-8.2) 09/24/18 19:14 Albumin 3.2 gm/dl (3.4-5.0) L 09/24/18 19:14 Globulin 3.4 gm/dl (2.5-4.0) 09/24/18 19:14 Albumin/Globulin Ratio 0.9 (0.9-2) 09/24/18 19:14 Lipase 243 U/L (73-393) 09/24/18 19:14 Procalcitonin 0.47 ng/ml (0-0.5) 09/24/18 19:14 Urine Color Yellow 09/24/18 19:44 Urine Appearance Clear (Clear) 09/24/18 19:44 Urine pH 5.5 (4.5-7.5) 09/24/18 19:44 Ur Specific [place] 1.017 (1.000-1.030) 09/24/18 19:44 Urine Protein Negative (Negative) 09/24/18 19:44 Urine Glucose (UA) Negative (Negative) 09/24/18 19:44 Urine Ketones Negative (Negative) 09/24/18 19:44 Urine Blood Negative (Negative) 09/24/18 19:44 Urine Nitrite Negative (Negative) 09/24/18 19:44 Urine Bilirubin Negative (Negative) 09/24/18 19:44 Urine Urobilinogen Negative (Negative) 09/24/18 19:44 Ur Leukocyte Esterase Negative (Negative) 09/24/18 19:44 Diagnostic Findings [facility], [place] [phone] XRay Report Patient: KAUSHAL NICOLEAdmit Date: 09/24/18 MR#: [id number]: [id number] [facility] Acct ID:[id number]: Date: [address] [place] [address] Zip: [place] [address] Age: 73Location: ED Sex: M Room/Bed: Att Phy: Diagnosis: SOB, ILLNESS, COUGH, FEVER Adelina Phy: Jeaneth Pérez, DOService Date: 09/24/18 Fam Phy: Interpreting Phy: Fredrick Muhammad MD Admit Phy: Ordering Phy: Alfred Christopher M.D. cc: ~ XR chest 2V routine CLINICAL HISTORY: sob, fever COMPARISON STUDY: 01/24/2016 FINDINGS: The cardiac and mediastinal contours are normal. There is no evidence of focal pulmonary consolidation. There is no evidence of failure. No pleural effusions are visualized.[ IMPRESSION: No active disease in the chest. Electronically signed by: Fredrick Muhammad M.D. 09/24/2018 8:26 PM Dictated: 09/24/182025 Transcribed: 09/24/182025 [facility], [place] [phone] CT Scan Report Patient: KAUSHAL NICOLEAdmit Date: 09/24/18 MR#: [id number]: [id number] [facility] Acct ID:[id number]: Date: [address] [place] [address] Zip: [place] [address] Age: 73Location: ED Sex: M Room/Bed: Att Phy: Diagnosis: SOB, ILLNESS, COUGH, FEVER Adelina Phy: Jeaneth Pérez, DOService Date: 09/24/18 [facility] Phy: Interpreting Phy: Fredrick Muhammad MD Admit Phy: Ordering Phy: Alfred Christopher M.D. cc: ~ CT chest wo con CLINICAL HISTORY: Fever, possible pneumonia. COMPARISON STUDY: Chest x-ray dated 09/24/2018, CT scan dated 09/15/2018 CT DOSE: 418.12 mGy.cm TECHNIQUE: CT of the thorax was performed from the thoracic inlet to the lung bases. Images are reviewed in the axial, sagittal, and coronal planes. IV contrast was not administered for this examination. A dose lowering technique was utilized adhering to the principles of ALARA. FINDINGS: Thyroid: Imaged portions of the thyroid gland are normal in appearance. Thoracic aorta: The thoracic aorta is normal in course and caliber, noting standard 3 vessel arch anatomy. Heart: There are mild coronary artery calcifications. The heart is normal in size. There is no pericardial effusion. Lungs and pleural spaces: There are no pleural effusions. There is no acute parenchymal consolidation. A 6 mm solid left lower lobe pulmonary nodule is visualized on image #[id number]. This is slowly growing, as this nodule measured 4 mm and 2017. There is a stable solid subpleural 4 mm left upper lobe pulmonary nodule. There are a few scattered micronodules. Mediastinum: There is a borderline enlarged 1 cm precarinal lymph node. Ny: There is no evidence of pathologic hilar adenopathy given the limitations of a noncontrast study Axilla: There is no evidence of pathologic axillary lymphadenopathy Upper abdomen: Partially visualized upper abdominal viscera is within normal limits. Skeletal structures: There are no lytic or blastic osseous lesions. IMPRESSION: 1. No evidence of acute parenchymal consolidation. 2. Indeterminate slowly growing solid 6 mm left lower lobe pulmonary nodule. This nodule measured 4 mm in May 2016. Nonemergent pulmonary consultation is recommended. Electronically signed by: Fredrick Muhammad M.D. 09/24/2018 9:08 PM Dictated: 09/24/182056 Transcribed: 09/24/182056 Code Status & VTE Plan Code Status Full code VTE Prophylaxis Plan VTE Prophylaxis will be ordered: Yes PG Care Time/CCT Total # of Minutes Spent Total Time Spent with Patient: Total time spent is greater than 50% in coordination of care (as documented) at patient's floor/unit and/or counseling patient: (1) Fever Fever type: unspecified Qualified Code(s): R50.9 - Fever, unspecified
[2018-09-25] MEDS ORDERED: ACETAMINOPHEN 1000 MG/100 ML IV IV PRN (00:41)
[2018-09-25] MEDS ORDERED: MAGNESIUM HYDROXIDE SUSP 30 ML UDC PO PRN (00:41)
[2018-09-25] MEDS ORDERED: ALUMINUM/MAGNESIUM SUSP 30 ML UDC PO PRN (00:41)
[2018-09-25] MEDS ORDERED: ONDANSETRON INJ 2 MG/ML 2 ML VIAL IV PRN (00:41)
[2018-09-25] MEDS ORDERED: POLYETHYLENE (MIRALAX) 17 GM PACK PO PRN (00:41)
[2018-09-25] MEDS ORDERED: IOVERSOL 100ml IV PRN (01:43)
[2018-09-25] MEDS: NSS + 20MEQ KCL 20 MEQ/1,000 ML BAG IV SCH ×3 (01:48→20:45)
[2018-09-25 05:29] LABS: Basophils # (auto) 0.03 K/uL (0-0.2); Basophils % (auto) 0.3 %; Eosinophils # (auto) 0.03 K/uL (0-0.5); Eosinophils % (auto) 0.3 %; Hematocrit (blood only) 42.2 % (42-52); Hemoglobin 14.5 g/dL (14.0-18.0); Immature Granulocytes # (auto) 0.03 K/uL (0.00-0.02); Immature Granulocytes % (auto) 0.3 %; Lymphocytes # (auto) 0.66 K/uL (1.2-3.4); Lymphocytes % (auto) 5.7 %; Mean Corpuscular Hgb Conc 34.4 g/dL (32-36); Mean Corpuscular Volume 90.8 fL (80-100); Mean Platelet Volume 9.9 fL (7.4-10.4); Monocytes # (auto) 0.63 K/uL (0.11-0.59); Monocytes % (auto) 5.4 %; Neutrophils # (auto) 10.24 K/uL (1.4-6.5); Platelet Count 183 K/uL (130-400); RDW Standard Deviation 45.8 fL (36.4-46.3); Red Blood Count 4.65 M/uL (4.7-6.1); White Blood Count 11.62 K/uL (4.8-10.8)
[2018-09-25 06:02] LABS: Albumin Level 3.1 gm/dl (3.4-5.0); BUN Creatinine Ratio 15.2 (10-20); Creatinine Clr Calc Pharmacy 66.3 ml/min; Est GFR (African American) 78.5; Est GFR (Non-African American) 67.7
[2018-09-25 06:03] LABS: INR 1.1 (0.9-1.1); Partial Thromboplastin Time 26.5 Seconds (21.0-31.0); Prothrombin Time 10.9 Seconds (9.0-12.0)
[2018-09-25 06:05] LABS: Albumin Globulin Ratio 0.9 (0.9-2); Bilirubin,Total 0.7 mg/dl (0.2-1); Globulin 3.4 gm/dl (2.5-4.0); Total Protein 6.5 gm/dl (6.4-8.2)
--- NOTE | 2018-09-25 06:46 | CT Scan Report ---
CT facial bones w con HISTORY: 73 years-old Male dental infection? FUO acute soft tissue swelling of the face with possibl e dental infection COMPARISON: Chest CT of same day TECHNIQUE: Multiple axial CT images of the maxillofacial bones were obtained following the intravenou s administration of 93 mL Optiray 320 IV contrast. A dose lowering technique was used consistent with the principals of ALARA. FINDINGS: Image intracranial structures demonstrate age-related involutional changes. The imaged vascular struc tures of the neck appear unremarkable. The orbits and soft tissues are within normal limits. No abnor mal enhancement, adenopathy or significant inflammation. Mastoid air cells and middle ear cavities ar e clear. No acute facial bone fracture identified. Mild mucosal thickening about the ethmoid air cell s and nasal turbinates. Multilevel degenerative changes about the cervical spine. Streak artifact fro m dental amalgam hardware. No large periapical lucencies throughout the maxillary or mandibular teeth . Evidence of multiple prior tooth extractions. IMPRESSION: 1. No acute facial bone fracture. 2. No significant inflammation or abnormal enhancement identified. The above report was generated using voice recognition software. It may contain grammatical, syntax o r spelling errors. Electronically signed by: Wai Buckner M.D. 09/25/2018 6:45 AM
[2018-09-25] MEDS: ACETAMINOPHEN 325 MG TAB PO PRN ×2 (07:27→20:44)
[2018-09-25] MEDS: DOXYCYCLINE HYCLATE 100 MG CAP PO SCH ×2 (08:27→20:45)
[2018-09-25] MEDS: MULTIVITAMIN TAB PO SCH (08:27)
--- NOTE | 2018-09-25 19:37 | Hospitalist Progress Note ---
Date of Service September 25, 2018 Assessment & Plan (1) Fever: Uncertain etiology. Diff - bacterial vs viral vs tick-borne vs noninfectious. Blood cx's thus far neg. u/a unremarkable. echo neg for vegetations. send lyme's screen. ehrlichia and anaplasmosis titers pending. cover w/ doxy in meantime. consider viral testing (EBV, etc). cont rocephin for empiric coverage - if blood negative x 48 hours then will stop. overall patient looks well today. (2) SIRS (systemic inflammatory response syndrome): See above SIRS already resolved (3) Pulmonary nodule less than 6 cm determined by computed tomography of lung: Pulmonary nodule on the left lower lobe is increased from 4 to 6 mm Will inquire about smoking history which will stratisfy him and help with timing of repeat outpatient imaging (4) Elevated PSA: Patient reports he has a chronically elevated PSA, with most recent 7.320 on 07/03/2018. Follows w/ [facility]. U/a normal. no signs/symptoms of UTI or prostatitis. (5) Benign prostatic hyperplasia with urinary obstruction: voiding w/o difficulty not on BPH meds (6) Asthma: no exacerbation at this time (7) Arthritis: of b/l knees but no inflammatory findings on examination (8) Hyperlipemia: Continue simvastatin 20 mg in evening Subjective patient "feels great" -- asks to d/c home. no fevers, chills. no myalgias or arthralgias today. good appetite - ate 100% of all meals today. denies cough, congestion, ear pain, sore throat, rash, skin infection, abd pain, nausea, emesis, diarrhea. had mild frontal headache overnight - now improved. Review of Systems Ear, Nose, Mouth, Throat: no dental pain and no sore throat Respiratory: no cough and no dyspnea Gastrointestinal: no vomiting and no diarrhea/loose stools Genitourinary: no dysuria Musculoskeletal: + joint pain (knees - chronic) Integumentary: no rash and no skin ulcer Physical Exam Constitutional: well developed, well nourished and average body habitus; no acute distress, not ill appearing and no altered mental status ENMT: external ear and nose normal, oropharynx normal Respiratory: normal respiratory effort, lungs clear to auscultation Cardiovascular: Rate/Rhythm: regular rate and regular rhythm Heart Sounds: normal S1 and normal S2; no murmur Vessels: posterior tibial pulses present and dorsalis pedis pulses present; no JVD Gastrointestinal (Abdomen): normal bowel sounds, soft, nontender, no hepatosplenomegaly Musculoskeletal: OA changes b/l knees but NO effusion, NO warmth, NO ten derness Skin: no rashes, warm and dry Psychiatric: A+Ox3, euthymic affect Lymphatic: no cervical lymphadenopathy Results & Data Vital Signs (Past 12 Hours) Vital Signs Temp Pulse Pulse Resp BP Pulse Ox 09/25/18 19:05 36.8 C 79 20 115/71 94 09/25/18 16:34 37.3 C 09/25/18 15:25 36.4 C L 75 18 132/75 94 09/25/18 12:05 36.8 C 65 18 110/71 95 09/25/18 08:00 81 09/25/18 07:45 36.9 C 73 16 117/72 94 Laboratory Results Laboratory Results - last 24 hr 09/24/18 09/24/18 09/24/18 19:14 19:14 19:14 WBC 12.95 H RBC 4.74 Hgb 15.1 Hct 43.4 MCV 91.6 MCH 31.9 MCHC 34.8 RDW Std Deviation 45.6 RDW Coeff of Vikas 13.7 Plt Count 203 MPV 10.0 Immature Gran % (Auto) 0.2 Neut % (Auto) 91.7 Lymph % (Auto) 3.2 [place] % (Auto) 4.2 Eos % (Auto) 0.5 Baso % (Auto) 0.2 Immature Gran # (Auto) 0.02 Neut # (Auto) 11.87 H Lymph # (Auto) 0.42 L [place] # (Auto) 0.54 Eos # (Auto) 0.07 Baso # (Auto) 0.03 Peripher Smr Path Cons PT INR APTT PTT Ratio Sodium 140 Potassium 3.9 Chloride 107 Carbon Dioxide 26 Anion Gap 8.0 BUN 18 Creatinine 1.03 Est Cr Clr Drug Dosing 69.7 Est GFR ( Amer) 83.1 Est GFR (Non-Af Amer) 71.7 BUN/Creatinine Ratio 17.0 Glucose 129 H Lactate 2.4 H* Calcium 8.0 L Total Bilirubin 0.5 AST 26 ALT 30 Alkaline Phosphatase 47 Troponin I < 0.015 Total Protein 6.6 Albumin 3.2 L Globulin 3.4 Albumin/Globulin Ratio 0.9 Lipase 243 Procalcitonin Urine Color Urine Appearance Urine pH Ur Specific [place] Urine Protein Urine Glucose (UA) Urine Ketones Urine Blood Urine Nitrite Urine Bilirubin Urine Urobilinogen Ur Leukocyte Esterase A. phagocytophilum IgG A. phagocytophilum IgM A.phagocytophilum Intrp A. phagocytophilum Cmmt E. chaffeensis IgG Ab E. chaffeensis IgM Ab E. chaffeensis Interp E. chaffeensis Comment 09/24/18 09/24/18 09/25/18 19:14 19:44 05:13 WBC RBC Hgb Hct MCV MCH MCHC RDW Std Deviation RDW Coeff of Vikas Plt Count MPV Immature Gran % (Auto) Neut % (Auto) Lymph % (Auto) [place] % (Auto) Eos % (Auto) Baso % (Auto) Immature Gran # (Auto) Neut # (Auto) Lymph # (Auto) [place] # (Auto) Eos # (Auto) Baso # (Auto) Peripher Smr Path Cons PT INR APTT PTT Ratio Sodium Potassium Chloride Carbon Dioxide Anion Gap BUN Creatinine Est Cr Clr Drug Dosing Est GFR ( Amer) Est GFR (Non-Af Amer) BUN/Creatinine Ratio Glucose Lactate Calcium Total Bilirubin AST ALT Alkaline Phosphatase Troponin I Total Protein Albumin Globulin Albumin/Globulin Ratio Lipase Procalcitonin 0.47 Urine Color Yellow Urine Appearance Clear Urine pH 5.5 Ur Specific [place] 1.017 Urine Protein Negative Urine Glucose (UA) Negative Urine Ketones Negative Urine Blood Negative Urine Nitrite Negative Urine Bilirubin Negative Urine Urobilinogen Negative Ur Leukocyte Esterase Negative A. phagocytophilum IgG A. phagocytophilum IgM A.phagocytophilum Intrp A. phagocytophilum Cmmt E. chaffeensis IgG Ab E. chaffeensis IgM Ab E. chaffeensis Interp E. chaffeensis Comment 09/25/18 09/25/18 09/25/18 05:13 05:13 05:13 WBC 11.62 H RBC 4.65 L Hgb 14.5 Hct 42.2 MCV 90.8 MCH 31.2 MCHC 34.4 RDW Std Deviation 45.8 RDW Coeff of Vikas 14.0 Plt Count 183 MPV 9.9 Immature Gran % (Auto) 0.3 Neut % (Auto) 88.0 Lymph % (Auto) 5.7 [place] % (Auto) 5.4 Eos % (Auto) 0.3 Baso % (Auto) 0.3 Immature Gran # (Auto) 0.03 H Neut # (Auto) 10.24 H Lymph # (Auto) 0.66 L [place] # (Auto) 0.63 H Eos # (Auto) 0.03 Baso # (Auto) 0.03 Peripher Smr Path Cons PT 10.9 INR 1.1 APTT 26.5 PTT Ratio 1.0 Sodium Potassium Chloride Carbon Dioxide Anion Gap BUN Creatinine Est Cr Clr Drug Dosing Est GFR ( Amer) Est GFR (Non-Af Amer) BUN/Creatinine Ratio Glucose Lactate Calcium Total Bilirubin AST ALT Alkaline Phosphatase Troponin I Total Protein Albumin Globulin Albumin/Globulin Ratio Lipase Procalcitonin Urine Color Urine Appearance Urine pH Ur Specific [place] Urine Protein Urine Glucose (UA) Urine Ketones Urine Blood Urine Nitrite Urine Bilirubin Urine Urobilinogen Ur Leukocyte Esterase A. phagocytophilum IgG Pending A. phagocytophilum IgM Pending A.phagocytophilum Intrp Pending A. phagocytophilum Cmmt Pending E. chaffeensis IgG Ab Pending E. chaffeensis IgM Ab Pending E. chaffeensis Interp Pending E. chaffeensis Comment Pending 09/25/18 05:13 WBC RBC Hgb Hct MCV MCH MCHC RDW Std Deviation RDW Coeff of Vikas Plt Count MPV Immature Gran % (Auto) Neut % (Auto) Lymph % (Auto) [place] % (Auto) Eos % (Auto) Baso % (Auto) Immature Gran # (Auto) Neut # (Auto) Lymph # (Auto) [place] # (Auto) Eos # (Auto) Baso # (Auto) Peripher Smr Path Cons PT INR APTT PTT Ratio Sodium 143 Potassium 4.0 Chloride 110 H Carbon Dioxide 25 Anion Gap 7.0 BUN 16 Creatinine 1.08 Est Cr Clr Drug Dosing 66.3 Est GFR ( Amer) 78.5 Est GFR (Non-Af Amer) 67.7 BUN/Creatinine Ratio 15.2 Glucose 102 H Lactate Calcium 8.0 L Total Bilirubin 0.7 AST 21 ALT 25 Alkaline Phosphatase 41 L Troponin I Total Protein 6.5 Albumin 3.1 L Globulin 3.4 Albumin/Globulin Ratio 0.9 Lipase Procalcitonin Urine Color Urine Appearance Urine pH Ur Specific [place] Urine Protein Urine Glucose (UA) Urine Ketones Urine Blood Urine Nitrite Urine Bilirubin Urine Urobilinogen Ur Leukocyte Esterase A. phagocytophilum IgG A. phagocytophilum IgM A.phagocytophilum Intrp A. phagocytophilum Cmmt E. chaffeensis IgG Ab E. chaffeensis IgM Ab E. chaffeensis Interp E. chaffeensis Comment PG Care Time/CCT Total # of Minutes Spent Total Time Spent with Patient: Total time spent is greater than 50% in coordination of care (as documented) at patient's floor/unit and/or counseling patient: (1) Fever Fever type: unspecified Qualified Code(s): R50.9 - Fever, unspecified (2) Hyperlipemia Hyperlipidemia type: unspecified Qualified Code(s): E78.5 - Hyperlipidemia, unspecified (3) Asthma Asthma severity: unspecified severity Asthma persistence: unspecified Asthma complication type: uncomplicated Qualified Code(s): J45.909 - Unspecified asthma, uncomplicated
[2018-09-25] MEDS ORDERED: cefTRIAXone SODIUM 2,000 MG in DEXTROSE 5% 50 ML IV SCH (20:00)
[2018-09-25] MEDS ORDERED: SIMVASTATIN 20 MG TAB PO SCH (21:00)
[2018-09-26] MEDS: NSS + 20MEQ KCL 20 MEQ/1,000 ML BAG IV SCH (05:50)
[2018-09-26 07:27] LABS: Basophils # (auto) 0.02 K/uL (0-0.2); Basophils % (auto) 0.3 %; Eosinophils # (auto) 0.15 K/uL (0-0.5); Eosinophils % (auto) 2.1 %; Hematocrit (blood only) 39.6 % (42-52); Hemoglobin 13.6 g/dL (14.0-18.0); Immature Granulocytes # (auto) 0.02 K/uL (0.00-0.02); Immature Granulocytes % (auto) 0.3 %; Lymphocytes # (auto) 1.08 K/uL (1.2-3.4); Mean Corpuscular Hgb Conc 34.3 g/dL (32-36); Mean Corpuscular Volume 90.4 fL (80-100); Mean Platelet Volume 9.8 fL (7.4-10.4); Monocytes # (auto) 0.89 K/uL (0.11-0.59); Monocytes % (auto) 12.4 %; Neutrophils # (auto) 5.04 K/uL (1.4-6.5); Neutrophils % (auto) 69.9 %; Platelet Count 141 K/uL (130-400); RDW Standard Deviation 46.3 fL (36.4-46.3); Red Blood Count 4.38 M/uL (4.7-6.1)
[2018-09-26 07:42] LABS: INR 1.1 (0.9-1.1); Prothrombin Time 10.8 Seconds (9.0-12.0)
[2018-09-26 08:05] LABS: BUN Creatinine Ratio 11.8 (10-20); Calcium 8.4 mg/dl (8.5-10.1); Creatinine Clr Calc Pharmacy 73.8 ml/min; Est GFR (African American) 89.4; Est GFR (Non-African American) 77.1; Magnesium 2.1 mg/dl (1.8-2.4); Potassium 4.4 mmol/L (3.5-5.1)
[2018-09-26 08:08] LABS: Albumin Globulin Ratio 0.9 (0.9-2); Bilirubin,Total 0.5 mg/dl (0.2-1); Globulin 3.2 gm/dl (2.5-4.0); Total Protein 6.2 gm/dl (6.4-8.2)
[2018-09-26] MEDS: DOXYCYCLINE HYCLATE 100 MG CAP PO SCH (08:41)
[2018-09-26] MEDS: MULTIVITAMIN TAB PO SCH (08:41)
[2018-09-26 11:55] LABS: Lyme Ab IgG w/WB Rflx Negative (Negative)
[2018-09-26 12:14] LABS: Lyme Ab IgM w/WB Rflx Equivocal (Negative)
--- NOTE | 2018-09-27 06:21 | Discharge Summary ---
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 He has had some general symptoms of fatigue and feeling shaky as well. He has had 2 similar episodes, with the last about 3 weeks prior to arrival, but the most recent spell self-resolved without any treatment. He also reports that he has been diagnosed with and treated for Lyme in the past, and that his son has recently been diagnosed with Lyme. Principal Diagnosis febrile illness, possibly tick-borne disease, resolved Discharge Exam Constitutional well developed, well nourished and average body habitus; no acute distress, not ill appearing and no altered mental status ENMT external ear and nose normal, oropharynx normal Respiratory normal respiratory effort, lungs clear to auscultation Cardiovascular Rate/Rhythm: regular rate and regular rhythm Heart Sounds: normal S1 and normal S2; no murmur Vessels: posterior tibial pulses present and dorsalis pedis pulses present; no JVD Gastrointestinal (Abdomen) normal bowel sounds, soft, nontender, no hepatosplenomegaly Skin no rashes, warm and dry Psychiatric A+Ox3, euthymic affect Lymphatic no cervical lymphadenopathy Discharge Data Allergies Allergy/AdvReac Type Severity Reaction Status Date / Time No Known Allergies Allergy Verified 09/24/18 20:[address] chest - IMPRESSION: 1. No evidence of acute parenchymal consolidation. 2. Indeterminate slowly growing solid 6 mm left lower lobe pulmonary nodule. This nodule measured 4 mm in May 2016. Nonemergent pulmonary consultation is recommended. 2. CT facial bones - IMPRESSION: 1. No acute facial bone fracture. 2. No significant inflammation or abnormal enhancement identified. Hospital Course (1) Fever: Uncertain etiology. Differential - bacterial vs viral vs tick-borne vs noninfectious. Blood cultures were negative while hospitalized. u/a was unremarkable. Echo negative for valvular vegetations. Lyme's screen was "equivocal" - western blot was sent and was pending at discharge. Ehrlichia and anaplasmosis titers were sent and pending. He received rocephin for empiric sepsis coverage and since cultures were negative this was stopped on his last hospital day. The patient's fever resolved rather quickly and he felt well within a short period of time following admission. To cover for the possibility of tick-borne disease / while awaiting confirmatory testing for lyme's/anaplasmosis/etc - he will complete 12 more days of twice daily doxycycline. If tick-borne disease testing is negative and he has recurrent fevers, chills, lab abnormalities, etc consider viral testing (EBV, CMV, parvovirus, etc). He had no CBC abnormalities to suggest a primary bone marrow process. (2) SIRS (systemic inflammatory response syndrome): See above in "fever" SIRS resolved rapidly while here (3) Pulmonary nodule less than 6 cm determined by computed tomography of lung: Pulmonary nodule in the left lower lobe increased from 4 to [address] chest. He will need repeat imaging and/or pulmonary consultation in the near future for this. (4) Elevated PSA: Patient reports he has a chronically elevated PSA, with most recent 7.320 on 07/03/2018. Follows w/ [facility]. U/a normal. no signs/symptoms of UTI or prostatitis while here. (5) Asthma: no exacerbation during the stay (6) Arthritis: of b/l knees but no inflammatory findings on examination (7) BPH w/o urinary obs/LUTS: no issues while hospitalized does not take medications for this (8) Hyperlipemia: Continue simvastatin 20 mg daily Total Time Total Time Spent Total Time Spent (In Minutes): 25 Total Time Includes: Examination of the Patient, Discharge Planning and Medication Reconciliation Discharge Plan Discharge Items Patient Disposition: Home - Self-Care Reason For Visit: Fever, Chills Discharge Diagnosis: Fever, Chills - resolved. Exact cause uncertain - suspect tick-borne illness vs viral illness. Discharge Goals: Diagnostic testing Activity: Resume your previous activity Non-emergency contact: Primary Care Provider Call non-emergency contact if: you have any medication questions, your symptoms worsen and your temperature is above 100.5 Follow-up/Referrals: Jeaneth Pérez DO [Primary Care Provider] - 10/06/18 3:00 pm (Please, follow up at Dr. Pérez's office with her assistant auditor, Sania Shen PA-C, on TuesdayOctober 06 at 3:00 pm. *If you need to change this appointment, call their office at [phone].) Diet: Regular Addtl Provider Instructions: From Reynaldo Oneal - hospitalist - You were seen and treated for a febrile illness. Your fevers, chills, and headache were all due to the unidentified infection. We did not find evidence of UTI, pneumonia, bloodstream infection, sinus infection, dental infection, heart valve infection (also known as endocarditis), etc. I suspect you either had a fleeting viral infection or a tick-borne infection (Lyme's, anaplasmosis, or ehrlichiosis). To cover for the possibility of tick-borne illness please continue doxycycline antibiotic. Take this for 12 more days starting TONIGHT. The lab testing for Lyme's, anaplasmosis, and ehrlichiosis will return in about 1 week. Your initial Lyme's testing was "equivocal" which means that the test was not negative but not strongly positive either (in other words we do not know if there is early Lyme's or not). Doxycycline can cause 2 main side effects - 1. heartburn symptoms 2. a rash if you go out in the sun while taking doxycycline To prevent a rash from the doxycycline please use sunscreen and cover up appropriately over the next 3 weeks if you go out in the sun. Follow-up - Please see Dr Pérez or one of her partners within 1 week Return to [facility] if - * you have recurrent fevers over 100.5 degrees * you have severe shortness of breath or chest pain * you have severe nausea, vomiting, or abdominal pain * you develop severe, widespread rash on your skin * you have severe diarrhea * any other concerns Prescriptions: New doxycycline hyclate 100 mg Capsule 100 mg PO BID 12 Days Qty: 24 RF: 0 Continued multivitamin tablet 1 tab PO DAILY RF: 0 simvastatin 20 mg tablet 20 mg PO QPM Qty: 90 RF: 3 Stand-Alone Forms: My [facility]/Other Patient Handouts: Doxycycline Hyclate Oral tablet [Periodontitis] Discharge Orders: Discharge Order (Routine); Ordered 09/26/18 Ordered By: Reynaldo Oneal Admission Data Admit Date/Time: 09/24/18 23:25 Attending Provider: Reynaldo Oneal Admit Provider: Inder Montes De Oca Primary Care Provider: Jeaneth Pérez Other Providers: Inder Montes De Oca Service: Telemetry Other Interventions: Discharge Summary Assessment (RN) Last Done: 09/26/18 12:54 Pending Studies at Discharge: Yes Studies:: tick-borne disease testing DC Date/Time DO NOT enter until pt leaves facility: 09/26/18 13:19
[2018-09-27 16:42] LABS: Anaplasma phagocytophila IgM <1:20 (<1:20); Ehrlichia chaff IgG Ab <1:64 (<1:64); Ehrlichia chaff IgM Ab <1:20 (<1:20)
--- NOTE | 2018-09-29 18:49 | History & Physical Bridge Note ---
Date of Service September 29, 2018 On 09/28/18 I was notified by the lab that the anaerobic bottle from ONE set of his blood cultures from earlier this week was positive for a gram positive ten. Typically this is a contaminant. The other anaerobic bottle from his second set of blood cultures is also POSITIVE for a gram positive ten. Since both anaerobic bottles are positive will assume this is pathogenic until proven otherwise. Possible pathogens - listeria, B. cereus. I called and spoke with the patient on 09/29/18 at 1830. He reported NO fevers or chills. Eating ok. No diarrhea. "I'm feeling good" he stated. I explained the blood culture results to him. He stated he had gone out for Angolan food last Tuesday. He did indeed eat rice. He stated that 4-6 hours after eating the [place] he felt poorly and developed the fevers/chills. 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 Will cover for possibility of B cereus with cipro. Will call in cipro 500mg BID x 1 week. Patient to come to hospital in am tomorrow for repeat blood cultures. Will have him continue the doxy until Western blot for lyme's is back. He voiced understanding of plan of care. Reynaldo Oneal MD
[2018-10-04 05:10] LABS: 18KDIGG Band NONREACTIVE (NONREACTIVE); 23KDIGG Band NONREACTIVE (NONREACTIVE); 23KDIGM Band DNR (NONREACTIVE); 28KDIGG Band NONREACTIVE (NONREACTIVE); 30KDIGG Band NONREACTIVE (NONREACTIVE); 39KDIGG Band NONREACTIVE (NONREACTIVE); 39KDIGM Band DNR (NONREACTIVE); 41KDIGG Band REACTIVE (NONREACTIVE); 41KDIGM Band DNR (NONREACTIVE); 45KDIGG Band NONREACTIVE (NONREACTIVE); 58KDIGG Band NONREACTIVE (NONREACTIVE); 66KDIGG Band NONREACTIVE (NONREACTIVE); 93KDIGG Band NONREACTIVE (NONREACTIVE); Lyme Antibodies, WB IgG NEGATIVE (NEGATIVE)
== END 2018-09-26 13:19 | disposition home or self-care (01) | DRG 866 ==
LOC: ED 19:09 → 1E 23:25 → SUATTDRO 23:25 → 1E 09-25 00:16 → 2S 09-25 06:55

== ENCOUNTER 2025-02-17 22:12 | Observation (INO) ==
--- NOTE | 2025-02-17 22:24 | Emergency Department Note ---
Impression & Plan Acute UTI Admission ED Provider Note HPI: History obtained from patient. The patient is a 79-year-old gentleman with history of prostate cancer, asthma, presents the emergency department with a chief complaint of fever and chills. Patient states the symptoms developed earlier today. Patient denies any cough, denies any sinus congestion, he denies any abdominal pain or vomiting. Patient states he has not noticed any changes to his urinary frequency, he denies any dysuria. On arrival here to the ER the patient is mildly tachycardic at 106, blood pressure stable at 133/71, patient arrives with borderline temperature at 37.6 Celsius, he does note that he took Motrin at home prior to arrival at 8 PM. Patient otherwise appears to be in no acute distress on arrival, he is alert and oriented x 3. ROS: - Per HPI Differential Diagnosis: Sepsis, urinary tract infection, viral upper respiratory infection to include influenza A, COVID-19, pneumonia, Lyme disease flare, amongst other potential pathologies. *Outpatient medications and allergy history reviewed. PE: General: Alert HEENT: Normocephalic, trachea midline Eyes: Extraocular eye movement is intact, no scleral erythema Pulmonary: Clear to auscultation bilaterally, no wheezing Cardio: Tachycardic rate with regular rhythm GI: Abdomen is soft to palpation : No suprapubic tenderness MSK: No evidence of trauma or malformation of the extremities, no edema Skin: No evidence of rash Neuro: Alert, no focal deficits Psychiatric: Cooperative INDEPENDENT INTERPRETATIONS: nurse monitoring: (As interpreted by myself): - An order was placed for continuous cardiac monitoring - Patient was noted to be in sinus rhythm with a rate of 106 EKG: (As interpreted by myself): Rate: 83 Rhythm: Normal sinus rhythm Intervals: Within normal limits ST changes: No ST elevation Time: 2242 Chest x-ray: (As interpreted by myself): No focal infiltrate Interventions provided in ED: - IV fluid bolus, IV cefepime, Tylenol Medical Decision Making: IV was established and lab work obtained, patient was placed on satellite project site monitor. Lab work shows a leukocytosis of 11.82, hemoglobin is normal, platelet count is normal, CMP does not show any evidence of any critical findings, creatinine is noted to be elevated at 1.41, lactic acid is normal. Troponin is negative x 1. Procalcitonin is elevated at 1.3. Blood cultures were drawn, urinalysis shows questionable infection with 1+ leukocyte esterase and mild pyuria, will send for culture. Patient was given a dose of IV cefepime here in the ED. Viral panel testing was obtained and is negative, Lyme testing is negative. Patient's tachycardia did improve with IV fluids, temperature down trended as well with Tylenol. Overall given the patient's lab abnormalities and fever earlier today with tachycardia and borderline temperature on arrival, I am concerned for the possibility of early sepsis from UTI as a potential source. I did recommend admission, patient and his family were in agreement. Case was discussed with the on-call hospitalist, Dr. Jenkins, and the patient was placed for admission in stable condition. Consultants/Discussions held with other healthcare providers: - Hospitalist, Dr. Jenkins Disposition discussion held by myself with: - Patient and family at bedside Diagnosis: 1. Urinary tract infection, acute 2. Elevated creatinine, acute 3. Elevated procalcitonin, acute 4. Leukocytosis, acute 5. Subjective fever/chills, acute Disposition: Admission Uri Porter DO Emergency Medicine Past Med/Surg History Problem List (Updated 02/18/25 @ 00:20 by Uri Porter DO) Acute UTI (Acute) Allergic rhinitis Prostate CA (Chronic 07/21/20) 52g prostate 3/17 cores with Gl 3+3=6 low volumes - 5-30% of each core Prediabetes Pulmonary nodule less than 6 cm determined by computed tomography of lung monitoring>checked twice, no changes in size Hyperlipemia History of tobacco abuse Quit smoking 09/29/1999 BPH w/o urinary obs/LUTS Asthma Arthritis hands and knees Elevated PSA (Chronic) Medical History Prostate cancer Surgical History History of cataract surgery History of esophagogastroduodenoscopy (EGD) History of colonoscopy (2019) History of prostate biopsy (07/21/20) S/P tonsillectomy Family History Father No problems noted. Mother No problems noted. Sister Breast cancer, Onset Age: 73 Son No problems noted. Daughter No problems noted. Denies family history of Ovarian cancer Prostate cancer Myocardial infarction Colorectal cancer Social History Smoking Status: Never smoker Tobacco Type: Cigarettes Age Started Using Tobacco: 15; Age Quit Using Tobacco: 50; packs per day: 1; Cigarettes Per Day: [id number] YEARS-STOPPED CHEWING TOBACCO, USING ZYN NICOTINE POUCHES; Second Hand Exposure: No; Do You Dip or Chew Tobacco: No; Hx Alcohol Use: Yes Alcohol type: beer Alcohol Intake Frequency: 4 or More x per/Week Alcohol Intake Frequency Comment: 1 BEER every night before bed Hx Substance Use: No Preferred Language: Bulgarian Communication Ability: Effective Visual Impairment: Limited Hearing Ability: Hard of Hearing Heel Builder Machine Required: No Beliefs That Will Affect Care: None marital status: Current Living Situation: Spouse current occupational status: retired current occupation: Teacher, and now farming Feels Safe at Home: Yes Childhood Exposure to Second-Hand Smoke: Yes (father smoked in home ) Diet: regular Diet Comment: regular caffeine: Yes (1 cup of coffee/day ) during the past year weight has: remained stable Dental Care, Regularly: Yes Physical Activity Frequency: Daily Seatbelt Use: always Sunscreen Use: No Assistive Devices: Glasses Allergies Allergies Allergy/AdvReac Type Severity Reaction Status Date / Time No Known Allergies Allergy Verified 11/19/24 10:05 Home Meds Previous Rx's Medication Instructions Recorded simvastatin 20 mg tablet 20 mg PO QPM #90 tabs 09/12/24 Results & Data (ED) Vital Signs Vital Signs - 24 hr 02/17/25 22:13 02/17/25 22:33 02/17/25 22:50 Temperature 37.6 C H Temperature Source Oral Pulse Rate 106 H 91 H Pulse Rate [Apical] 83 Pulse Rhythm [Apical] Regular Pulse Strength [Apical] Normal Respiratory Rate 17 16 Respiratory Effort / Characteristics Non-Labored Spontaneous Non-Labored Respiratory Depth Normal Normal Respiratory Pattern Regular Regular Blood Pressure 133/71 Blood Pressure [Right Arm] 131/75 Blood Pressure Mean 91 Blood Pressure Mean [Right Arm] 93 Blood Pressure Position [Right Arm] Lying Pulse Oximetry 92 90 Oxygen Delivery Method Room Air Room Air Sepsis Recent Fever Within 48 Hours Yes Sepsis New/Unexplained Change in Mental Status No Sepsis Action Taken by Nursing No Action Required 02/17/25 23:25 Temperature 36.7 C Temperature Source Oral Pulse Rate Pulse Rate [Apical] Pulse Rhythm [Apical] Pulse Strength [Apical] Respiratory Rate Respiratory Effort / Characteristics Respiratory Depth Respiratory Pattern Blood Pressure Blood Pressure [Right Arm] Blood Pressure Mean Blood Pressure Mean [Right Arm] Blood Pressure Position [Right Arm] Pulse Oximetry Oxygen Delivery Method Sepsis Recent Fever Within 48 Hours Sepsis New/Unexplained Change in Mental Status Sepsis Action Taken by Nursing Laboratory Data 02/17/25 22:02/17/25 22: Lab Results 02/17/25 02/17/25 02/17/25 Range/Units 22:18 22: 22: WBC 11.82 H (4.8-10.8) K/ul RBC 4.87 (4.70-6.10) M/uL Hgb 15.2 (14.0-18.0) g/dL Hct 43.7 (42.0-52.0) % MCV 89.7 (80.0-100.0) fL MCH 31.2 (25.0-34.0) pg MCHC 34.8 (32.0-36.0) g/dL RDW Std Deviation 44.7 (36.4-46.3) fL RDW Coeff of Vikas 13.5 (11.5-14.5) % Plt Count 203 (130-400) K/uL MPV 10.3 (9.4-12.4) fL Immature Gran % (Auto) 0.3 % Neut % (Auto) 87.9 % Lymph % (Auto) 5.3 % Knox % (Auto) 5.6 % Eos % (Auto) 0.5 % Baso % (Auto) 0.4 % Neut # (Auto) 10.38 H (1.40-6.50) K/uL Lymph # (Auto) 0.63 L (1.20-3.40) K/uL Knox # (Auto) 0.66 H (0.11-0.59) K/uL Eos # (Auto) 0.06 (0.00-0.50) K/uL Baso # (Auto) 0.05 (0.00-0.20) K/uL Immature Gran # (Auto) 0.04 (0.01-0.20) K/uL RBC Morphology Unremarkable PT 10.8 (9.0-12.0) Seconds INR 1.0 (0.9-1.1) Sodium 133 L (136-145) mmol/L Potassium 4.1 (3.5-5.1) mmol/L Chloride 104 (98-107) mmol/L Carbon Dioxide 22 (21-32) mmol/L Anion Gap 7 (3-11) BUN 20 (6-23) mg/dl Creatinine 1.41 H (0.6-1.4) mg/dl Est Cr Clr Drug Dosing 46.4 ml/min eGFR 50.69 BUN/Creatinine Ratio 14.2 (10-20) Glucose 121 H (70-99(Fasting)) mg/dl Lactate 0.7 (0.4-2.0) mmol/L Calcium 8.5 L (8.6-10.3) mg/dl Total Bilirubin 0.9 (0.2-1.0) mg/dl AST 24 (13-39) U/L ALT 18 (7-52) U/L Alkaline Phosphatase 41 (34-104) U/L Troponin I High Sens 7.5 (0-20) pg/ml Total Protein 6.3 (6.0-8.3) gm/dl Albumin 3.6 (3.4-5.0) gm/dl Globulin 2.7 (2.5-4.0) gm/dl Albumin/Globulin Ratio 1.3 (0.9-2) Procalcitonin 1.30 H (0-0.5) ng/ml Urine Color Yellow Urine Appearance Clear (Clear) Urine pH 5.5 (4.5-7.5) Ur Specific [place] 1.024 (1.000-1.030) Urine Protein Negative (Negative) Urine Glucose (UA) Negative (Negative) Urine Ketones Trace H (Negative) Urine Blood Negative (Negative) Urine Nitrite Negative (Negative) Urine Bilirubin Negative (Negative) Urine Urobilinogen Negative (Negative) Ur Leukocyte Esterase 1+ H (Negative) Urine WBC (Auto) 6-10 H (0-5) /hpf Urine RBC (Auto) 3-5 H (0-2) /hpf U Hyaline Cast (Auto) 0-2 (0-2) /lpf U Epithel Cells (Auto) 0-2 (0-2) /hpf Urine Bacteria (Auto) None Seen (None Seen) Urine Comment Adenovirus (PCR) (NotDetected) B. pertussis DNA (PCR) (NotDetected) B.parapertussis DNA PCR (NotDetected) Lyme Disease Screen Negative (Negative) C. pneumoniae DNA (PCR) (NotDetected) Coronavirus OC43 (PCR) (NotDetected) Coronavirus HKU1 (PCR) (NotDetected) Coronavirus 229E (PCR) (NotDetected) SARS-CoV-2 (PCR) (NotDetected) Coronavirus NL63 (PCR) (NotDetected) Human Metapneumovir PCR (NotDetected) Influenza Type A (PCR) (NotDetected) Influenza Type B (PCR) (NotDetected) M. pneumoniae (PCR) (NotDetected) Parainfluenza 1 (PCR) (NotDetected) Parainfluenza 2 (PCR) (NotDetected) Parainfluenza 3 (PCR) (NotDetected) Parainfluenza 4 (PCR) (NotDetected) RSV (PCR) (NotDetected) Entero/Rhino (PCR) (NotDetected) 02/17/25 Range/Units 23:00 WBC (4.8-10.8) K/ul RBC (4.70-6.10) M/uL Hgb (14.0-18.0) g/dL Hct (42.0-52.0) % MCV (80.0-100.0) fL MCH (25.0-34.0) pg MCHC (32.0-36.0) g/dL RDW Std Deviation (36.4-46.3) fL RDW Coeff of Vikas (11.5-14.5) % Plt Count (130-400) K/uL MPV (9.4-12.4) fL Immature Gran % (Auto) % Neut % (Auto) % Lymph % (Auto) % Knox % (Auto) % Eos % (Auto) % Baso % (Auto) % Neut # (Auto) (1.40-6.50) K/uL Lymph # (Auto) (1.20-3.40) K/uL Knox # (Auto) (0.11-0.59) K/uL Eos # (Auto) (0.00-0.50) K/uL Baso # (Auto) (0.00-0.20) K/uL Immature Gran # (Auto) (0.01-0.20) K/uL RBC Morphology PT (9.0-12.0) Seconds INR (0.9-1.1) Sodium (136-145) mmol/L Potassium (3.5-5.1) mmol/L Chloride (98-107) mmol/L Carbon Dioxide (21-32) mmol/L Anion Gap (3-11) BUN (6-23) mg/dl Creatinine (0.6-1.4) mg/dl Est Cr Clr Drug Dosing ml/min eGFR BUN/Creatinine Ratio (10-20) Glucose (70-99(Fasting)) mg/dl Lactate (0.4-2.0) mmol/L Calcium (8.6-10.3) mg/dl Total Bilirubin (0.2-1.0) mg/dl AST (13-39) U/L ALT (7-52) U/L Alkaline Phosphatase (34-104) U/L Troponin I High Sens (0-20) pg/ml Total Protein (6.0-8.3) gm/dl Albumin (3.4-5.0) gm/dl Globulin (2.5-4.0) gm/dl Albumin/Globulin Ratio (0.9-2) Procalcitonin (0-0.5) ng/ml Urine Color Urine Appearance (Clear) Urine pH (4.5-7.5) Ur Specific [place] (1.000-1.030) Urine Protein (Negative) Urine Glucose (UA) (Negative) Urine Ketones (Negative) Urine Blood (Negative) Urine Nitrite (Negative) Urine Bilirubin (Negative) Urine Urobilinogen (Negative) Ur Leukocyte Esterase (Negative) Urine WBC (Auto) (0-5) /hpf Urine RBC (Auto) (0-2) /hpf U Hyaline Cast (Auto) (0-2) /lpf U Epithel Cells (Auto) (0-2) /hpf Urine Bacteria (Auto) (None Seen) Urine Comment Adenovirus (PCR) Not Detected (NotDetected) B. pertussis DNA (PCR) Not Detected (NotDetected) B.parapertussis DNA PCR Not Detected (NotDetected) Lyme Disease Screen (Negative) C. pneumoniae DNA (PCR) Not Detected (NotDetected) Coronavirus OC43 (PCR) Not Detected (NotDetected) Coronavirus HKU1 (PCR) Not Detected (NotDetected) Coronavirus 229E (PCR) Not Detected (NotDetected) SARS-CoV-2 (PCR) Not Detected (NotDetected) Coronavirus NL63 (PCR) Not Detected (NotDetected) Human Metapneumovir PCR Not Detected (NotDetected) Influenza Type A (PCR) Not Detected (NotDetected) Influenza Type B (PCR) Not Detected (NotDetected) M. pneumoniae (PCR) Not Detected (NotDetected) Parainfluenza 1 (PCR) Not Detected (NotDetected) Parainfluenza 2 (PCR) Not Detected (NotDetected) Parainfluenza 3 (PCR) Not Detected (NotDetected) Parainfluenza 4 (PCR) Not Detected (NotDetected) RSV (PCR) Not Detected (NotDetected) Entero/Rhino (PCR) Not Detected (NotDetected) Administered Medications Discontinued Medications Acetaminophen (Acetaminophen 500 Mg Tab) 1,000 mg PO ONE STA Stop: 02/17/25 22:20 Last Admin: 02/17/25 22:28 Dose: 1,000 mg Documented By: mell Sodium Chloride (Nss) 1,000 mls @ 999 mls/hr IV .Q1H1M ONE Stop: 02/17/25 23:21 Last Infusion: 02/17/25 23:33 Dose: Infused Documented By: mell Admin: 02/17/25 22:29 Dose: 999 mls/hr Documented By: mell Cefepime HCl (Maxipime 2000mg) 2,000 mg in 20 mls @ 5 mls/min IV NOW STA; Protocol Stop: 02/17/25 23:39 Last Admin: 02/17/25 23:43 Dose: 5 mls/min Documented By: mell Discharge Plan Visit Data Chief Complaint: Fever Stated Complaint: HIGH FEVER (106), CHILLS ED Provider: Uri Porter Discharge Problem: Acute UTI Patient Disposition: Admitted As Inpatient Condition: Fair Forms Stand Alone Forms: [facility] Prescriptions Prescriptions: No Action simvastatin 20 mg tablet 20 mg PO QPM Qty: 90 1RF Referrals Referrals: Ildefonso Pham CRNP [Primary Care Provider] -
[2025-02-17] MEDS: ACETAMINOPHEN 500 MG TAB PO STA (22:28)
[2025-02-17] MEDS: SODIUM CHLORIDE 0.9% 1,000 ML IV ONE (22:29)
[2025-02-17 22:41] LABS: Appearance Urine Clear (Clear); Bacteria Urine Automated None Seen (None Seen); Cast Urine Automated 0-2 /lpf (0-2); Epithelial Cell Urine Auto 0-2 /hpf (0-2); Glucose Urine UA Negative (Negative)
[2025-02-17 23:02] LABS: Alanine Aminotransferase 18.0 U/L (7-52); Albumin Globulin Ratio 1.3 (0.9-2); Albumin Level 3.6 gm/dl (3.4-5.0); Alkaline Phosphatase 41.0 U/L (34-104); Anion Gap 7.0 (3-11); Bilirubin,Total 0.9 mg/dl (0.2-1.0); Blood Urea Nitrogen 20.0 mg/dl (6-23); Calcium 8.5 mg/dl (8.6-10.3); Carbon Dioxide 22.0 mmol/L (21-32); Chloride 104.0 mmol/L (98-107); Creatinine Clr Calc Pharmacy 46.4 ml/min; Globulin 2.7 gm/dl (2.5-4.0); Glucose 121.0 mg/dl (70-99(Fasting)); Potassium 4.1 mmol/L (3.5-5.1); Sodium 133.0 mmol/L (136-145); Total Protein 6.3 gm/dl (6.0-8.3)
[2025-02-17 23:07] LABS: Procalcitonin 1.30 ng/ml (0-0.5)
[2025-02-17 23:10] LABS: Hematocrit (blood only) 43.7 % (42.0-52.0); Hemoglobin 15.2 g/dL (14.0-18.0); Mean Corpuscular Hemoglobin 31.2 pg (25.0-34.0); Mean Corpuscular Volume 89.7 fL (80.0-100.0); Platelet Count 203 K/uL (130-400); RDW Standard Deviation 44.7 fL (36.4-46.3); Red Blood Count 4.87 M/uL (4.70-6.10); White Blood Count 11.82 K/ul (4.8-10.8)
[2025-02-17 23:21] LABS: INR 1.0 (0.9-1.1); Prothrombin Time 10.8 Seconds (9.0-12.0)
[2025-02-17 23:32] LABS: Lyme Screen Rflx Confirmation Negative (Negative)
[2025-02-17 23:43] LABS: Immature Granulocytes # (auto) 0.04 K/uL (0.01-0.20); Immature Granulocytes % (auto) 0.3 %; RBC Morphology Unremarkable
[2025-02-17] MEDS: CEFEPIME 2000MG 2,000 MG/20 ML SYR IV STA (23:43)
[2025-02-18 00:05] LABS: Chlamydia pneumoniae PCR Not Detected (NotDetected); Coronavirus 229E PCR Not Detected (NotDetected); Coronavirus CoV-2 (COVID19)PCR Not Detected (NotDetected); Coronavirus HKU1 PCR Not Detected (NotDetected); Coronavirus NL63 PCR Not Detected (NotDetected); Coronavirus OC43PCR Not Detected (NotDetected); Human Metapneumovirus PCR Not Detected (NotDetected); Parainfluenza Virus 1 PCR Not Detected (NotDetected); Parainfluenza Virus 2 PCR Not Detected (NotDetected); Parainfluenza Virus 3 PCR Not Detected (NotDetected); Parainfluenza Virus 4 PCR Not Detected (NotDetected); Respiratory Syncytial VirusPCR Not Detected (NotDetected); Rhinovirus/Enterovirus PCR Not Detected (NotDetected)
--- NOTE | 2025-02-18 00:22 | XRay Report ---
Exam(s): XR CXR 1 VIEW EXAM: XR Chest, 1 View CLINICAL HISTORY: Fever. TECHNIQUE: Frontal view of the chest. COMPARISON: XR Chest dated 09/24/2018 FINDINGS: Lungs: No focal consolidation. The pulmonary vasculature demonstrates no significant radiographic abnormality. Pleural space: Normal. No pneumothorax. No large pleural effusion. Heart: Normal. No cardiomegaly. Mediastinum: The mediastinal contours are unremarkable, accounting for lordotic technique. No tracheal deviation. Bones/joints: Normal. No acute fracture. IMPRESSION: No focal consolidation or acute cardiopulmonary process identified. Electronically signed by: Ildefonso Topete MD 02/18/25 00:21 AM
--- NOTE | 2025-02-18 00:38 | History & Physical Report ---
Date of Service February 18, 2025 Assessment & Plan (1) Acute UTI: (2) Tachycardia: (3) Renal insufficiency: (4) Prostate CA: Plan Patient is an 80-year-old male with past medical history of recurrent prostate cancer under surveillance, asthma, Lyme's disease, prediabetes, HLD. Patient presented due to a fever of 106 F at home, chills, rigors throughout the day 02/17. His ROS is otherwise negative. Workup in the ED revealed UTI and concern for early sepsis with white count 11.82, tachycardia, fevers. Patient is being admitted for IV antibiotics and IV fluids. #UTI concern for early sepsis with WBC 11.82 with neutrophil predominance, HR 106, temp 37.6 C, Pro-Maurice 1.3. UA 1+ LE, 6-10 WBC. Patient denies any flank pain. No other sources of infection foundBioFire negative, CXR negative, Lyme screen negative. Follow-up blood and urine cultures Given cefepime 2G IV in ED, transition to Rocephin as low concern for pseudomonal infection Received 1L NSS bolus in ED, continue fluid resuscitation with LR at 125 mL/hour x 1 L Tylenol as needed for fevers or pain Zofran as needed for nausea Trend CBC #Renal insufficiency Cr 1.07 -> 1.41, however does not meet criteria for STEVEN. Likely 2/2 acute infection above. IVF as above Avoid nephrotoxic agents Trend BMP and magnesium #Prostate cancerin active surveillance since July 2020, follows with urology - Dr. Holden. Stable. #HLDcontinue statin VTE ppx: SCDs, high risk with current CA however possible early discharge - if prolonged stay add chemical ppx Dispo: med/tele, obs - possible dc 02/18 Admission and Anticipated Discharge Date Admission Date: 02/18/25 History of Present Illness Chief Complaint: fever Primary Care Provider: SALLY Patel Patient is an 80-year-old male with past medical history of recurrent prostate cancer under surveillance, asthma, Lyme's disease, prediabetes, HLD. Patient presented due to a fever of 106 F at home, chills, rigors throughout the day 02/17. His ROS is otherwise negative. Workup in the ED revealed UTI and concern for early sepsis with white count 11.82, tachycardia, fevers. Patient is being admitted for IV antibiotics and IV fluids. Patient seen at bedside with his and daughter present. He endorses the above. He stated he took Motrin around 8 PM. He denies any cough, congestion, sore throat, chest pain, shortness of breath, abdominal pain, nausea, vomiting, diarrhea, dysuria, increase in urinary frequency, flank pain, fatigue. Does have chronic back pain however at baseline. Currently his prostate cancer however does have active surveillance with urologist Dr. Holden. He no longer smokes cigarettes however uses nicotine pouches, nicotine patch in place from home. His only home medication is a statin for his high cholesterol which he is due for, ordered. He wishes to be DNR/DNI status. Allergies Allergy/AdvReac Type Severity Reaction Status Date / Time No Known Allergies Allergy Verified 02/18/25 00:24 Home Medications Medication Instructions Recorded Confirmed Type simvastatin 20 mg tablet 20 mg PO QPM #90 tabs 09/12/24 02/18/25 Rx Past Med/Surg History Problem List (Updated 02/18/25 @ 00:52 by Ita Khanna PA-C) Renal insufficiency Tachycardia Acute UTI (Acute) Allergic rhinitis Prostate CA (Chronic 07/21/20) 52g prostate 3/17 cores with Gl 3+3=6 low volumes - 5-30% of each core Prediabetes Pulmonary nodule less than 6 cm determined by computed tomography of lung monitoring>checked twice, no changes in size Hyperlipemia History of tobacco abuse Quit smoking 09/29/1999 BPH w/o urinary obs/LUTS Asthma Arthritis hands and knees Elevated PSA (Chronic) Medical History Prostate cancer Surgical History History of cataract surgery History of esophagogastroduodenoscopy (EGD) History of colonoscopy (2019) History of prostate biopsy (07/21/20) S/P tonsillectomy Family History Father No problems noted. Mother No problems noted. Sister Breast cancer, Onset Age: 73 Son No problems noted. Daughter No problems noted. Denies family history of Ovarian cancer Prostate cancer Myocardial infarction Colorectal cancer Social History Smoking Status: Never smoker Tobacco Type: Cigarettes Age Started Using Tobacco: 15; Age Quit Using Tobacco: 50; packs per day: 1; Cigarettes Per Day: [id number] YEARS-STOPPED CHEWING TOBACCO, USING ZYN NICOTINE POUCHES; Second Hand Exposure: No; Do You Dip or Chew Tobacco: No; Hx Alcohol Use: Yes Alcohol type: beer Alcohol Intake Frequency: 4 or More x per/Week Alcohol Intake Frequency Comment: 1 BEER every night before bed Hx Substance Use: No Preferred Language: Telugu Communication Ability: Effective Visual Impairment: Limited Hearing Ability: Hard of Hearing 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 Beliefs That Will Affect Care: None marital status: Current Living Situation: Spouse current occupational status: retired current occupation: Teacher, and now farming Feels Safe at Home: Yes Childhood Exposure to Second-Hand Smoke: Yes (father smoked in home ) Diet: regular Diet Comment: regular caffeine: Yes (1 cup of coffee/day ) during the past year weight has: remained stable Dental Care, Regularly: Yes Physical Activity Frequency: Daily Seatbelt Use: always Sunscreen Use: No Assistive Devices: Glasses Review of Systems Review of Systems: see HPI Physical Exam Physical Exam: The patient is awake, alert and oriented 3, well developed and well nourished, normocephalic and atraumatic, in no acute distress. Non-toxic appearing. HEENT- EOMI, mucous membranes dry. Hearing grossly intact. Heart-normal S1 and S2. No murmurs, rubs or gallops. Lungs-clear bilaterally, no respiratory distress, no accessory muscle use. Abdomen-normal bowel sounds and soft. No ascites noted. Non-tender. Extremities- no clubbing, cyanosis, or edema. Rheumatologic-normal range of motion. Psychiatric-normal affect. Results & Data Results & Data Vital Signs (Past 12 Hours) Vital Signs Temp Pulse Pulse Resp BP BP Pulse Ox 02/17/25 23:25 36.7 C 02/17/25 22:50 83 16 131/75 90 02/17/25 22:33 91 H 02/17/25 22:13 37.6 C H 106 H 17 133/71 92 O2 Del Method 02/17/25 23:25 02/17/25 22:50 Room Air 02/17/25 22:33 02/17/25 22:13 Room Air Laboratory Results reviewed CBC, CMP, PT/INR, troponin, procalcitonin, lactate, UA, BioFire, Lyme screen Diagnostic Findings reviewed CXR Medications Administered EDcefepime 2G IV, 1L NSS bolus, Tylenol 1G p.o. ECG Additional Comments: NSR, incomplete RBBB - known history of Rate 83 QTc 421 Code Status & VTE Plan Code Status full code VTE Prophylaxis Plan VTE Prophylaxis will be ordered: Yes Supervising Physician Co-Signing Physician Notes Patient seen and examined, chart reviewed, case discussed with REGINO Khanna and I agree with the assessment and plan as above PG Care Time/CCT Total # of Minutes Spent Total Time Spent with Patient: Total time spent is greater than 50% in coordination of care (as documented) at patient's floor/unit and/or counseling patient: Coding Level of Care Code 50844 INT INP/OBS CARE 3/75MIN Diagnoses Acute UTI N39.0 Tachycardia R00.0 Renal insufficiency N28.9 Prostate CA C61
[2025-02-18] MEDS: LACTATED RINGER'S 1,000 ML IV SCH (00:47)
[2025-02-18] MEDS: SIMVASTATIN 20 MG TAB PO STA (01:17)
[2025-02-18] MEDS ORDERED: MELATONIN 3 MG TAB PO PRN (02:51)
[2025-02-18] MEDS ORDERED: DOCUSATE SODIUM 100 MG CAP PO PRN (02:51)
[2025-02-18] MEDS ORDERED: ACETAMINOPHEN 325 MG TAB PO PRN (02:51)
[2025-02-18] MEDS ORDERED: ONDANSETRON INJ 2 MG/ML 2 ML VIAL IV PRN (02:51)
[2025-02-18 04:26] LABS: Hematocrit (blood only) 41.5 % (42.0-52.0); Hemoglobin 14.1 g/dL (14.0-18.0); Immature Granulocytes # (auto) 0.03 K/uL (0.01-0.20); Immature Granulocytes % (auto) 0.4 %; Mean Corpuscular Hemoglobin 31.1 pg (25.0-34.0); Mean Corpuscular Volume 91.6 fL (80.0-100.0); Platelet Count 162 K/uL (130-400); RDW Standard Deviation 46.2 fL (36.4-46.3); Red Blood Count 4.53 M/uL (4.70-6.10); White Blood Count 7.22 K/ul (4.8-10.8)
[2025-02-18 04:41] LABS: Anion Gap 2.0 (3-11); Blood Urea Nitrogen 17.0 mg/dl (6-23); Calcium 8.0 mg/dl (8.6-10.3); Carbon Dioxide 26.0 mmol/L (21-32); Chloride 109.0 mmol/L (98-107); Creatinine Clr Calc Pharmacy 53.1 ml/min; Glucose 105.0 mg/dl (70-99(Fasting)); Magnesium 2.1 mg/dl (1.7-2.4); Potassium 4.6 mmol/L (3.5-5.1); Sodium 137.0 mmol/L (136-145)
[2025-02-18 04:52] VITALS: RESP 18
[2025-02-18] MEDS: cefTRIAXone SODIUM 2,000 MG/50 ML BAG IV SCH (11:08)
--- NOTE | 2025-02-18 11:33 | Discharge Summary ---
Discharge Summary Date of Service February 18, 2025 Principal Dx & Hospital Course #1 = Principal Diagnosis (1) Acute UTI: (2) Tachycardia: (3) Renal insufficiency: (4) Prostate CA: Plan Patient is an 80-year-old male with past medical history of recurrent prostate cancer under surveillance, asthma, Lyme's disease, prediabetes, HLD. Patient presented due to a fever of 106 F at home, chills, rigors throughout the day 02/17. His ROS is otherwise negative. Workup in the ED revealed UTI and concern for early sepsis with white count 11.82, tachycardia, fevers. #UTI concern for early sepsis with WBC 11.82 with neutrophil predominance, HR 106, temp 37.6 C, Pro-Maurice 1.3. UA 1+ LE, 6-10 WBC on arrival. No other sources of infection foundBioFire negative, CXR negative, Lyme screen negative. Resolution of leukocytosis on 02/18 after initiation of IV abx. Procal remained elevated at 1.30. Discussed w/ pt that BC & UC are still pending but patient preferred to be discharged as it was his 80th birthday. Discussed that he required close follow up w/ PCP for UC results & if BC were to turn positive he would have to return to the ED. Discharged on Keflex 500mg TID to complete treatment of UTI. #Renal insufficiency Cr 1.07 -> 1.41, however does not meet criteria for STEVEN. Likely 2/2 acute infection above. Creatinine now WNL after IVF at 1.21 #Prostate cancerin active surveillance since July 2020, follows with urology - Dr. Holden. Stable. #HLDcontinue statin Patient discharged home 02/18. Admission HPI Per Admitting Provider Patient is an 80-year-old male with past medical history of recurrent prostate cancer under surveillance, asthma, Lyme's disease, prediabetes, HLD. Patient presented due to a fever of 106 F at home, chills, rigors throughout the day 02/17. His ROS is otherwise negative. Workup in the ED revealed UTI and concern for early sepsis with white count 11.82, tachycardia, fevers. Patient is being admitted for IV antibiotics and IV fluids. Patient seen at bedside with his and daughter present. He endorses the above. He stated he took Motrin around 8 PM. He denies any cough, congestion, sore throat, chest pain, shortness of breath, abdominal pain, nausea, vomiting, diarrhea, dysuria, increase in urinary frequency, flank pain, fatigue. Does have chronic back pain however at baseline. Currently his prostate cancer however does have active surveillance with urologist Dr. Holden. He no longer smokes cigarettes however uses nicotine pouches, nicotine patch in place from home. His only home medication is a statin for his high cholesterol which he is due for, ordered. He wishes to be DNR/DNI status. Discharge Exam General: NAD, VS: BP 153/76; P86; R18; T37.2C Resp: normal respiratory effort Extremities: Moves all extremities, no edema Neuro: A&O x3 Skin: intact, no lesions noted Discharge Plan Discharge Items Patient Disposition: Home - Self-Care Reason For Visit: UTI, EARLY SEPSIS Discharge Diagnosis: UTI, Early sepsis Condition on Discharge: Fair Activity: Resume your previous activity Non-emergency contact: Primary Care Provider Call non-emergency contact if: you have any medication questions, your symptoms worsen and you have a fever Follow-up/Referrals: Ildefonso Pham CRNP [Primary Care Provider] - 02/28/25 10:20 am (Hospital follow up appointment on February 28 at 10:20 am.) Diet: Regular Addtl Attending Provider Instructions: Mr. Johnson, You were recently hospitalized secondary to a fever from home. You were found to have a positive urinalysis indicating a urinary tract infection. You have blood cultures pending at the time of discharge. If they turn positive you will be notified, you can also check in with your PCP or the [facility] portal and will have to return back to the emergency department for further treatment. Medications: Your medication list has been reviewed and reconciled upon discharge to ensure accuracy and continuity of care. An updated list of all your medications is included with your hospital discharge paperwork. Please review this list closely, and make note of any changes. Please take Keflex three times daily for the next 5 days. Your first dose at home will be this evening, 02/18. This may cause GI upset so you can take with food to help reduce adverse GI side effects. Take your medications as instructed; do not skip a dose of your medicines. Make sure all of your doctors know every medicine you are taking (including zgwn-drw-rtjortp medicines, vitamins, and supplements). Call your primary care provider before taking any new medicines (including over- the-counter medicines, vitamins, and supplements), because some of these may interact with your current medications, or may make your symptoms worse. Tell your primary care provider if you cannot afford your medications. Activity: You can do normal everyday activities as your body allows. Take rest breaks if you feel tired. Do not overexert. Stop activity if you have pain, shortness of breath or feel dizzy. Follow-up appointments: Make an appointment with your primary care physician within one week of discharge. A copy of this summary will be sent to them. Every time you see your primary care physician, or any other doctor, bring your medication list, and a list of questions. CONTACT YOUR PRIMARY CARE PROVIDER if you experience any of the following: Shortness of breath or difficulty breathing Fevers or chills Feeling tired with normal activity or experiencing dizziness or fainting Difficulty following your treatment plan, or difficulty taking medications CALL 911 OR GO TO THE EMERGENCY DEPARTMENT if you experience any of the following: Severe abdominal pain or nausea/vomiting Severe chest pain, or chest pain that radiates (moves) to your jaw or arm Sudden, severe shortness of breath or difficulty breathing Thank you for allowing us to participate in your care. Pending Studies at Discharge: Yes Studies:: urine culture, blood culture Stand-Alone Forms: My [facility], Smoking Cessation Medications and DC Order Prescriptions: New cephalexin 500 mg capsule 500 mg PO TID Qty: 15 0RF Continued simvastatin 20 mg tablet 20 mg PO QPM Qty: 90 1RF Discharge Orders: Discharge Order (Routine); Ordered 02/18/25 Ordered By: Coral Petit Admission Data Admit Date/Time: 02/18/25 00:42 Attending Provider: Kennedy Womack Admit Provider: Marni Jenkins Primary Care Provider: Ildefonso Pham Other Providers: Marni Jenkins Other Interventions: Discharge Summary Assessment (RN) Last Done: 02/18/25 12:23 Hospital Stay Data Consultations 02/18/25 00:10 ED Decision to Admit Stat Pending Results Patient Have Any Pending Studies at Discharge: Yes Discharge Instructions Given to Patient (Per Discharging Provider) Mr. Johnson, You were recently hospitalized secondary to a fever from home. You were found to have a positive urinalysis indicating a urinary tract infection. You have blood cultures pending at the time of discharge. If they turn positive you will be notified, you can also check in with your PCP or the [facility] portal and will have to return back to the emergency department for further treatment. Medications: Your medication list has been reviewed and reconciled upon discharge to ensure accuracy and continuity of care. An updated list of all your medications is included with your hospital discharge paperwork. Please review this list erick sely, and make note of any changes. Please take Keflex three times daily for the next 5 days. Your first dose at home will be this evening, 02/18. This may cause GI upset so you can take with food to help reduce adverse GI side effects. Take your medications as instructed; do not skip a dose of your medicines. Make sure all of your doctors know every medicine you are taking (including lnxl-zrt-qbcvyid medicines, vitamins, and supplements). Call your primary care provider before taking any new medicines (including over- the-counter medicines, vitamins, and supplements), because some of these may interact with your current medications, or may make your symptoms worse. Tell your primary care provider if you cannot afford your medications. Activity: You can do normal everyday activities as your body allows. Take rest breaks if you feel tired. Do not overexert. Stop activity if you have pain, shortness of breath or feel dizzy. Follow-up appointments: Make an appointment with your primary care physician within one week of discharge. A copy of this summary will be sent to them. Every time you see your primary care physician, or any other doctor, bring your medication list, and a list of questions. CONTACT YOUR PRIMARY CARE PROVIDER if you experience any of the following: Shortness of breath or difficulty breathing Fevers or chills Feeling tired with normal activity or experiencing dizziness or fainting Difficulty following your treatment plan, or difficulty taking medications CALL 911 OR GO TO THE EMERGENCY DEPARTMENT if you experience any of the following: Severe abdominal pain or nausea/vomiting Severe chest pain, or chest pain that radiates (moves) to your jaw or arm Sudden, severe shortness of breath or difficulty breathing Thank you for allowing us to participate in your care. Supervising Physician Co-Signing Physician Notes The patient was not seen by me. The chart was reviewed. Case discussed with VILMA Phillip. Agree with assessment and plan Total Time Total Time Spent Total Time Spent (In Minutes): 45 Total Time Includes: Examination of the Patient, Discharge Planning and Medication Reconciliation Coding Level of Care Code 69317 INP/OBS DISCH >30 MIN Diagnoses Acute UTI N39.0 Tachycardia R00.0 Renal insufficiency N28.9 Prostate CA C61
[2025-02-18 11:39] VITALS: BP 153/76; PULSE 86; TEMP 99; O2SAT 94
--- NOTE | 2025-02-18 12:48 | Electrocardiogram Report ---
Test Reason : Blood Pressure : */* mmHG Vent. Rate : 83 BPM Atrial Rate : 83 BPM P-R Int : 178 ms QRS Dur : 114 ms QT Int : 384 ms P-R-T Axes : 67 38 56 degrees QTcB Int : 451 ms Normal sinus rhythm Incomplete right bundle branch block Borderline ECG Confirmed by Tez Zhao ([id number]) on 02/18/2025 12:47:53 PM Referred By: Confirmed By: Tez Zhao
[2025-02-18] MEDS ORDERED: SIMVASTATIN 20 MG TAB PO SCH (21:00)
== END 2025-02-18 14:00 | disposition home or self-care (01) ==
LOC: ED 22:12 → EDINP 22:12 → SUATTDRO 02-18 00:42 → 4W 02-18 04:08